=== PATIENT | male | born 1965 | race Two or more races ===

== ENCOUNTER 2020-12-16 16:46 | Inpatient (IN) | payer OTHER ==
[~2020-12-16] VITALS: Ht 182.9 cm; Wt 171.5 kg
[2020-12-16] MEDS ORDERED: DEXAMETHASONE SOD PHOSPHATE 10 MG/ML VIAL IV ONE (17:00)
[2020-12-16] MEDS ORDERED: VANCOMYCIN 1 GM in IV D5W 250 ML IV ONE (17:00)
[2020-12-16] MEDS ORDERED: CEFEPIME 1 GM in IV D5W 50 ML IV ONE (17:00)
--- NOTE | 2020-12-16 17:11 | NUR ---
CALLED NURSING SUP FOR PICC LINE. ETA 1 HOUR.
[2020-12-16] MEDS ORDERED: ATOR40TA PO (17:18)
[2020-12-16] MEDS ORDERED: PIOG30TA10 PO (17:18)
[2020-12-16] MEDS ORDERED: NIFE90TA61 PO (17:18)
[2020-12-16] MEDS ORDERED: LOSA100T31 PO (17:18)
[2020-12-16] MEDS ORDERED: CHLO25TA2 PO (17:18)
[2020-12-16] MEDS ORDERED: METO100T14 PO (17:18)
[2020-12-16] MEDS ORDERED: METF-442 PO (17:18)
[2020-12-16] MEDS ORDERED: GLIM4TAB37 PO (17:18)
[2020-12-16] MEDS ORDERED: DEXAMETHASONE SOD PHOSPHATE 10 MG/ML VIAL ONE (17:29)
--- NOTE | 2020-12-16 17:34 | NUR ---
PT IS PLACED ON 02 VIA HI FLOW WITH SETTING OF 60LPM 100% FIO2. PT NOTED WITH DISTRESS ALLEVIATION. NOTED SATTING @ 85% DESPITE HI-FLOW O2. MD IS AWARE AND RT IS AWARE WELL.
[2020-12-16 17:35] LABS: BASOPHILS # (AUTO) 0.1 K/uL (0.0-0.2); BASOPHILS % (AUTO) 0.5 % (0.0-2.0); HEMATOCRIT 34 % (39-51); LYMPHOCYTES # (AUTO) 1.1 K/uL (0.8-4.8); LYMPHOCYTES % (AUTO) 9.1 % (20.0-44.0); MEAN CORPUSCULAR HGB CONC 35 g/dl (31.0-36.0); MEAN CORPUSCULAR VOLUME 83 fL (80-96); MONOCYTES # (AUTO) 0.5 K/uL (0.1-1.30); MONOCYTES % (AUTO) 3.6 % (2.0-12.0); NEUTROPHILS # (AUTO) 10.9 K/uL (1.8-8.9); NEUTROPHILS % (AUTO) 86.8 % (43.0-81.0); PLATELET COUNT (AUTO) 265 K/uL (150-450); RED BLOOD CELL COUNT(AUTO) 4.15 MIL/uL (4.5-6.0); WHITE BLOOD COUNT (AUTO) 12.6 K/uL (4.3-11.0)
[2020-12-16 17:46] LABS: CALCIUM, SERUM 8.5 mg/dL (8.5-10.1); CARBON DIOXIDE 22 mmol/L (21-32); CHLORIDE 97 mmol/L (98-107); CREATININE 1.6 mg/dL (0.6-1.3); GLUCOSE 212 mg/dL (74-106); SODIUM SERUM 137 mmol/L (136-145); UREA NITROGEN, BLOOD 19 mg/dL (7-18)
[2020-12-16 17:48] LABS: POTASSIUM 2.6 mmol/L (3.5-5.1)
[2020-12-16 17:48] LABS: D-DIMER 1.28 mg/L(FEU (0.17-0.50)
[2020-12-16 17:52] LABS: ALANINE AMINOTRANSFERASE 30 U/L (12-78); ALBUMIN 2.9 g/dL (3.4-5.0); ALKALINE PHOSPHATASE 60 U/L (46-116); ASPARTATE AMINOTRANSFERASE 52 U/L (15-37); BILIRUBIN,DIRECT 0.2 mg/dL (0.0-0.2); BILIRUBIN,TOTAL 0.5 mg/dL (0.2-1.0); TOTAL PROTEIN, SERUM 7.4 g/dL (6.4-8.2)
--- NOTE | 2020-12-16 18:09 | NUR ---
CONSENT OBTAINED FOR PICC LINE INSERTION FORM THE PT. PICC LINE NURSE AT BEDSIDE
[2020-12-16 18:35] LABS: C-REACTIVE PROTEIN 21.9 mg/dL (0.0-0.9)
[2020-12-16] MEDS ORDERED: POTASSIUM CL. PREMIX PERIPHER. 200 ML ONE (18:44)
[2020-12-16] MEDS ORDERED: Magnesium 1GM/D5W 100ML PREMIX 100 ML IV ONE (18:44)
--- NOTE | 2020-12-16 18:55 | NUR ---
PT'S PICC LINE IS OK TO BE USED PER PICC LINE NNURSE. XRAY WAS DONE AT BEDSIDE.
[2020-12-16] MEDS ORDERED: IV NS 0.9% 1,000 ML IV ONE ×2 (19:00→20:00)
[2020-12-16] MEDS: POTASSIUM CL. PREMIX PERIPHER. 50 ML IV SCH ×4 (19:00→21:41)
[2020-12-16] MEDS ORDERED: Magnesium 1GM/D5W 100ML PREMIX PIGGYBACK IV ONE (19:00)
[2020-12-16 19:46] LABS: ABG BASE EXCESS 3.1 mmol/L; ABG OXYGEN SATURATION 91.6 % (92.0-98.5); ABG PCO2 29.5 mmHg (35.0-45.0); ABG PH 7.545 (7.350-7.450); ABG PO2 58.6 mmHg (75.0-100.0); AaDO2 624.9 mmHg; COHb 0.3 % (0.5-1.5); MetHb 0.5 % (0.0-1.5); O2Hb 90.9 % (94.0-97.0); SITE, ABG Left Brachial
[2020-12-16] MEDS ORDERED: Z GUARD REMEDY 2 OZ OINT TP PRN (20:00)
[2020-12-16] MEDS ORDERED: ONDANSETRON HCL/PF 4 MG/2 ML VIAL IVP PRN (20:00)
[2020-12-16] MEDS ORDERED: DEXTROSE 50%-WATER 50 ML DISP.SYRIN IV PRN (20:00)
[2020-12-16] MEDS ORDERED: MAGNESIUM HYDROXIDE 30 ML UDC PO PRN (20:00)
[2020-12-16] MEDS ORDERED: MAG HYDROX/AL HYDROX/SIMETH 30 ML UDC PO PRN (20:00)
--- NOTE | 2020-12-16 20:13 | NUR ---
REPORT GIVEN TO MELINDA MENDEZ FOR SHAHNAZ
--- NOTE | 2020-12-16 20:25 | NUR ---
ADMISSION OIL PROCESS STILLMANSPOOL SANDER 54 YEARS OLD MALE TO ICU UNIT AT ROOM 262 WITH DIAGNOSIS: ACUTE HYPOXIC RESPIRATORY FAILURE,ALERT ORIENTED X4 VERBALLY RESPONSIVE ON HIGH FLOW OXYGEN 60L FIO2:100% AND 15L NON REBREATHER MASK O2:90%,IV SITE IS ON RIGHT UPPER ARM PICC LINE AND LEFT HAND INTACT PATENT,CONTINET TO BOWEL/BLADDER SAFETY MEASURE IMPLEMENT CALL LIGHT WITHIN REACH,HEAD OF THE BED ELEVATED,BED IN LOW POSITION AND LOCKED CONTINUE TO MONITOR
--- NOTE | 2020-12-16 20:32 | NUR ---
PT TRANSPORTED TO UNIT ON [facility] WITH EMT, RT AND RN AT BEDSIDE W/ ACLS PROTOCOL. NAD NOTED DURING TRANSPORT.
[2020-12-16] MEDS: BLOOD SUGAR DIAGNOSTIC 1 EACH STRIP VI SCH (21:55)
[2020-12-16] MEDS: *INSULIN REGULAR(HUMULIN R)HUM 100 UNIT/ML VIAL SQ PRN (22:11)
[2020-12-16 23:00] VITALS: BP 144/80
[2020-12-17] VITALS (24 sets, daily range): BP systolic 115–147; BP diastolic 48–80
[2020-12-17 04:38] LABS: BASOPHILS % (AUTO) 0.2 % (0.0-2.0); HEMATOCRIT 32 % (39-51); HEMOGLOBIN 11.3 g/dL (13.5-17.5); LYMPHOCYTES % (AUTO) 11.9 % (20.0-44.0); MEAN CORPUSCULAR HGB CONC 35 g/dl (31.0-36.0); MEAN CORPUSCULAR VOLUME 83 fL (80-96); MONOCYTES # (AUTO) 0.5 K/uL (0.1-1.30); MONOCYTES % (AUTO) 5.3 % (2.0-12.0); NEUTROPHILS # (AUTO) 7.1 K/uL (1.8-8.9); NEUTROPHILS % (AUTO) 82.6 % (43.0-81.0); PLATELET COUNT (AUTO) 263 K/uL (150-450); RED BLOOD CELL COUNT(AUTO) 3.87 MIL/uL (4.5-6.0); WHITE BLOOD COUNT (AUTO) 8.6 K/uL (4.3-11.0)
[2020-12-17 04:50] LABS: CALCIUM, SERUM 8.3 mg/dL (8.5-10.1); CREATININE 1.1 mg/dL (0.6-1.3); MAGNESIUM 2.5 mg/dL (1.8-2.4); PHOSPHORUS 3.6 mg/dL (2.5-4.9); POTASSIUM 3.2 mmol/L (3.5-5.1)
--- NOTE | 2020-12-17 06:52 | NUR ---
CORPORATE LEGAL MANAGER NOTE PATIENT REMAINS ON ALERT ORIENTED X4 VERBALLY RESPONSIVE ON HIGH FLOW OXYGEN 60L FIO2:100% AND 15 ABDULKADIR NON REBREAHTER MASKE O2l:85-92% IV SITE IS ON RIGHT UPPER ARM PICC LINE AND LEFT HAND,ON IV HYDRINTON IN0.9 75CC/HR ALL DUE MEDS GIVEN MD ORDERED.OLDRED ALL NEEDS ME5T ,ENDORSE NEXT COMING SHIFT FOR [facility].
--- NOTE | 2020-12-17 07:15 | NUR ---
RN NOTE PATIENT OBSERVED IN BED AWAKE ALERT AND ORIENTED X4, ON HF @40 LPM 100% FIO2 AND NON-REBREATHER MASK 15LPM O2 SAT OF 92% TOLERATING WELL, NOT IN RESPIRATORY DISTRESS AT THIS TIME,WITH RIGHT UPPER ARM PICC LINE PATENT INFUSING WELL IV HYDRATION NS RUNNING @75CC/HR, ON TELE MONITOR SR HR OF 68, URINAL AT BEDSITE BELONGING WITHIN EASY REACH, SAFETY MEASURES OBSERVED, BED WHEELS LOCK, CALL LIGHT WITHIN REACH WILL CONTINUE TO MONITOR. Addendum: 12/17/20 at 0754 by JEFFREY VALERA RN RN NOTE PATIENT OBSERVED IN BED AWAKE ALERT AND ORIENTED X4, ON HF @60 LPM 100% FIO2 AND NON-REBREATHER MASK 15LPM O2 SAT OF 92% TOLERATING WELL, NOT IN RESPIRATORY DISTRESS AT THIS TIME,WITH RIGHT UPPER ARM PICC LINE PATENT INFUSING WELL IV HYDRATION NS RUNNING @75CC/HR, ON TELE MONITOR SR HR OF 68, URINAL AT BEDSITE BELONGING WITHIN EASY REACH, SAFETY MEASURES OBSERVED, BED WHEELS LOCK, CALL LIGHT WITHIN REACH WILL CONTINUE TO MONITOR.
[2020-12-17] MEDS: BLOOD SUGAR DIAGNOSTIC 1 EACH STRIP VI SCH ×4 (08:01→21:28)
[2020-12-17] MEDS: METOPROLOL TARTRATE 50 MG TABLET PO SCH ×2 (08:27→16:59)
[2020-12-17] MEDS: ATORVASTATIN 40 MG TABLET PO SCH (08:27)
[2020-12-17] MEDS: DEXAMETHASONE SOD PHOSPHATE 10 MG/ML VIAL IV SCH (08:28)
[2020-12-17] MEDS: NIFEdipine XL (30MG) 30 MG TAB PO SCH (08:30)
[2020-12-17] MEDS ORDERED: ENOXAPARIN SODIUM 40 MG/0.4 ML DISP.SYRIN SQ SCH ×2 (08:30→09:30)
[2020-12-17] MEDS: *INSULIN REGULAR(HUMULIN R)HUM 100 UNIT/ML VIAL SQ PRN ×2 (08:37→21:27)
[2020-12-17] MEDS ORDERED: PIOGLITAZONE HCL 15 MG TABLET PO SCH (09:00)
[2020-12-17] MEDS ORDERED: GLIMEPIRIDE 4 MG TABLET PO SCH (09:00)
--- NOTE | 2020-12-17 09:28 | NUR ---
RN NOTE DUPLICATE LOVENOX ORDER NOT ADMINISTERED.
[2020-12-17] MEDS ORDERED: POTASSIUM CHLORIDE 20 MEQ TAB.PRT.SR PO SCH (10:30)
[2020-12-17] MEDS ORDERED: REMDESIVIR (CHARGED) 200 MG, *LOADING DOSE 1 EA in IV NS 0.9% 210 ML IV ONE ×2 (11:00)
--- NOTE | 2020-12-17 11:00 | NUR ---
RN NOTE PATIENT SEEN BY DR. HUMBERTO SANCHEZ, UPDATED REGARDING PATIENT CURRENT CONDITON, WILL CONTINUE PLAN OF CARE ORDERED.
[2020-12-17] MEDS: INSULIN REGULAR, HUMAN 100 UNIT/ML 3 ML VIAL SQ PRN ×2 (12:08→16:57)
[2020-12-17] MEDS ORDERED: ACETAMINOPHEN 325 MG TABLET PO ONE (15:00)
[2020-12-17] MEDS ORDERED: diphenhydrAMINE HCL 50 MG/ML VIAL IV ONE (15:00)
--- NOTE | 2020-12-17 15:49 | NUR ---
RN NOTE PATIENT STARTED ACTEMRA ORDERED, TYLENOL AND BENADRYL GIVEN PRE ADMINISTRATION OF ACTEMRA ORDERED, WILL CONTINUE TO MONITOR PATIENT FOR ASE.
--- NOTE | 2020-12-17 16:06 | NUR ---
RN NOTE PATIENT ON ACTEMRA INFUSION, TOLERATING WELL, NO ASE NOTED AT THIS TIME.
[2020-12-17] MEDS ORDERED: TOCILIZUMAB 800 MG in IV NS 0.9% 80 ML IV ONE (16:30)
--- NOTE | 2020-12-17 17:00 | NUR ---
RN NOTE ACTEMRA ADMINISTRATION DONE, NO ASE NOTED, PATIENT TOLERATED WELL.
--- NOTE | 2020-12-17 18:53 | NUR ---
RN NOTE PATIENT OBSERVED IN BED AWAKE ALERT AND ORIENTED X4, ON HF @60 LPM 100% FIO2 AND NON-REBREATHER MASK 15LPM O2 SAT OF 92% TOLERATING WELL, NOT IN RESPIRATORY DISTRESS AT THIS TIME,WITH RIGHT UPPER ARM PICC LINE PATENT INFUSING WELL SP ACTEMRA NO ASE NOTED, LOADING DOSE OF REMDESIVER ADMINISTERED ORDERED, ECHO CARDIOGRAM DONE EF OF 55%-60% , ON TELE MONITOR SR HR OF 68, URINAL AT BEDSITE BELONGING WITHIN EASY REACH, CONTINUE DVT PPX NO BLEEDING NOTED AT THIS TIME. SAFETY MEASURES OBSERVED, BED WHEELS LOCK, CALL LIGHT WITHIN REACH WILL CONTINUE TO MONITOR. WILL ENDORSE TO NOC SHIFT.
[2020-12-17] MEDS: ENOXAPARIN SODIUM 40 MG/0.4 ML DISP.SYRIN SQ SCH (20:59)
[2020-12-18] VITALS (24 sets, daily range): BP systolic 120–155; BP diastolic 50–79
[2020-12-18 04:52] LABS: ALBUMIN 2.6 g/dL (3.4-5.0); BILIRUBIN,DIRECT 0.1 mg/dL (0.0-0.2); BILIRUBIN,TOTAL 0.4 mg/dL (0.2-1.0); TOTAL PROTEIN, SERUM 7.3 g/dL (6.4-8.2)
[2020-12-18] MEDS: ACETAMINOPHEN 325 MG TABLET PO PRN (05:20)
--- NOTE | 2020-12-18 05:38 | NUR ---
END OF SHIFT PT REMAINS ON DOUBLE OXYGEN SET UP. HFNC + NRB. O2 SAT 88%-92%.
--- NOTE | 2020-12-18 06:30 | NUR ---
SCAFFOLDING HELPER: PT REMAINED A/O X3. ON HFNC 60L WT 100% FI02 AND 15L NON-REBREATHER MASK. PREFFERRED TO SIT UP ON CHAIR FOR BETTER 02 SATURATION. REFUSED TO PRONE AND UNABLE TO TOLERATE SIDE LYING POSITION. HOB REMAINED ON HIGH-ROSE'S. SR ON ORDER WORKER. AFEBRILE. REQUESTED TYLENOL FOR GEN. BODY PAIN (3/10) WT GOOD EFFECT AFTER AN HOUR (0/10). BP WITHIN BASELINE. ABLE TO URINATE ON URINAL. MOTIVATED TO SELF-CARE WT STAND-BY ASSISTANCE. BED IN LOWEST POSITION AND LOCKED, SIDE RAILS UPX2. OFFLOADED EXTREMITIES AT ALL TIMES. CALL LIGHT KEPT WITHIN REACH.
--- NOTE | 2020-12-18 07:20 | NUR ---
RN NOTE PATIENT OBSERVED IN BED AWAKE ALERT AND ORIENTED X4, ON HF @60 LPM 100% FIO2 AND NON-REBREATHER MASK 15LPM O2 SAT OF 92% TOLERATING WELL, NOT IN RESPIRATORY DISTRESS AT THIS TIME,WITH RIGHT UPPER ARM PICC LINE PATENT INFUSING WELL, ON TELE MONITOR SR HR OF 68, URINAL AT BEDSITE BELONGING WITHIN EASY REACH, CONTINUE DVT PPX NO BLEEDING NOTED AT THIS TIME. SAFETY MEASURES OBSERVED, BED WHEELS LOCK, CALL LIGHT WITHIN REACH WILL CONTINUE TO MONITOR.
[2020-12-18] MEDS ORDERED: POTASSIUM CHLORIDE 20 MEQ TAB.PRT.SR PO ONE (08:00)
[2020-12-18] MEDS: BLOOD SUGAR DIAGNOSTIC 1 EACH STRIP VI SCH ×4 (08:16→22:04)
[2020-12-18] MEDS: ENOXAPARIN SODIUM 40 MG/0.4 ML DISP.SYRIN SQ SCH ×2 (08:39→20:22)
[2020-12-18] MEDS: *INSULIN REGULAR(HUMULIN R)HUM 100 UNIT/ML VIAL SQ PRN ×2 (08:40→22:04)
[2020-12-18] MEDS: ATORVASTATIN 40 MG TABLET PO SCH (08:42)
[2020-12-18] MEDS: METOPROLOL TARTRATE 50 MG TABLET PO SCH ×2 (08:42→16:32)
[2020-12-18] MEDS: NIFEdipine XL (30MG) 30 MG TAB PO SCH (08:43)
[2020-12-18] MEDS: DEXAMETHASONE SOD PHOSPHATE 10 MG/ML VIAL IV SCH (08:43)
[2020-12-18 08:48] LABS: ABG BASE EXCESS 1.4 mmol/L; ABG OXYGEN SATURATION 87.6 % (92.0-98.5); ABG PCO2 30.2 mmHg (35.0-45.0); ABG PH 7.512 (7.350-7.450); ABG PO2 50.9 mmHg (75.0-100.0); AaDO2 631.9 mmHg; O2Hb 87.6 % (94.0-97.0); SITE, ABG Right Radial; VENT MODE, BG HFNC 100%+NRB
[2020-12-18 10:39] LABS: BASOPHILS # (AUTO) 0.1 K/uL (0.0-0.2); BASOPHILS % (AUTO) 0.6 % (0.0-2.0); HEMATOCRIT 34 % (39-51); HEMOGLOBIN 11.7 g/dL (13.5-17.5); LYMPHOCYTES # (AUTO) 1.2 K/uL (0.8-4.8); LYMPHOCYTES % (AUTO) 11.9 % (20.0-44.0); MEAN CORPUSCULAR HGB CONC 34 g/dl (31.0-36.0); MEAN CORPUSCULAR VOLUME 85 fL (80-96); MONOCYTES # (AUTO) 0.4 K/uL (0.1-1.30); MONOCYTES % (AUTO) 4.1 % (2.0-12.0); NEUTROPHILS # (AUTO) 8.6 K/uL (1.8-8.9); NEUTROPHILS % (AUTO) 83.4 % (43.0-81.0); PLATELET COUNT (AUTO) 299 K/uL (150-450); RED BLOOD CELL COUNT(AUTO) 4.03 MIL/uL (4.5-6.0); WHITE BLOOD COUNT (AUTO) 10.3 K/uL (4.3-11.0)
[2020-12-18 10:52] LABS: CALCIUM, SERUM 8.7 mg/dL (8.5-10.1); CREATININE 1.2 mg/dL (0.6-1.3); POTASSIUM 3.6 mmol/L (3.5-5.1)
[2020-12-18] MEDS: REMDESIVIR (CHARGED) 100 MG in IV NS 0.9% 100 ML IV SCH (11:46)
[2020-12-18] MEDS: INSULIN REGULAR, HUMAN 100 UNIT/ML 3 ML VIAL SQ PRN ×2 (12:14→16:48)
--- NOTE | 2020-12-18 18:30 | NUR ---
RN NOTE [facility] RESULT CALLED BY [place] [employer] AUDITOR EVA LOVE PCR POSITIVE FOR COVID 19, MD AWARE PATIENT ALREADY ON COVID ISOLATION PRECAUTION AND RECEIVING REMDESIVER.
--- NOTE | 2020-12-18 18:51 | NUR ---
RN NOTE PATIENT SITTIN ON CHAIR WITH HF @ 60LPM WITH 100%FIO2 AND 15LPM NON-REBREATHER TOLERATING WELL O2SAT OF 94%, ON TELE MONITOR SR OF 62 AT THIS TIME, NO PAIN COMPLAINS, REMDESIVER GIVEN ORDERED, NO ASE NOTED, PATIENT ON DVT PPX NO BLEEDING NOTED, CONTINENT ON BOWEL AND BLADDER, AMBULATES WITH MINIMAL ASSIST, NEEDS MET AND ANTICIPATED, CALL LIGHT WITHIN REACH, DUE MEDICATION GIVEN ORDERED, SAFETY MEASURES OBSERVED WILL ENDORSE TO NOC SHIFT.
--- NOTE | 2020-12-18 20:07 | NUR ---
Patient remains on double oxygen set up HFNC + NRB. Patient is awake and sitting on the chair. O2 sat 96%. Continue to monitor. Addendum: 12/18/20 at 2009 by SHANE BRAR RT Amended: Links added.
--- NOTE | 2020-12-18 20:30 | NUR ---
COMMERCIAL REAL ESTATE PARALEGAL: CALLED AND NOTIFIED DR. JOHNNY GREENBERG RF=[phone], CHECKED BEFORE SCHEDULED TIME PT IS ON ISOLATION FOR COVID AND REQUESTED THE NURSE TO COME INSIDE THE ROOM FOR ASSISTANCE. PT SAID THAT HE HAS BEEN DRINKING PEDIALYTE JUICE WT A LOT OF SUGAR CONTENT. MD MADE AWARE THAT PT IS ON DECADRON IV AND NOT ON LANTUS. MD INFORMED THAT BLOOD SUGAR WILL BE RECHECKED IN AN HOUR AND ASKED IF RESULT IS STIL ABOVE 400, DOES HE WANT TO ORDER MORE INSULIN. MD SAID TO JUST COVER THE HS SLIDING SCALE WITH NO FURTHER ORDERS. PT MADE AWARE. NO SHAHNAZ A THIS TIME. REMAINED A/O X4. CONTINUE ON HFNC 60L 100% FIO2 WITH 15L NON-REBREATHER MASK. SITTING ON THE CHAIR. CALL LIGHT WITHINI REACH.
--- NOTE | 2020-12-18 22:05 | NUR ---
MICROBIOLOGY TECHNICIAN: BS RECHECKED WT RESULT OF 402. COVERED WT 10U REGULAR INSULIN PER SLIDING SCALE. PT. SAID HE WON'T DRINK THE PEDIALYTE ANYMORE.
[2020-12-18] MEDS: ZOLPIDEM TARTRATE 5 MG TABLET PO PRN (23:17)
[2020-12-19] VITALS (25 sets, daily range): BP systolic 136–164; BP diastolic 64–99
[2020-12-19 04:36] LABS: CALCIUM, SERUM 8.9 mg/dL (8.5-10.1); POTASSIUM 3.8 mmol/L (3.5-5.1)
[2020-12-19 04:43] LABS: ALBUMIN 2.6 g/dL (3.4-5.0); BILIRUBIN,DIRECT 0.1 mg/dL (0.0-0.2); BILIRUBIN,TOTAL 0.3 mg/dL (0.2-1.0); TOTAL PROTEIN, SERUM 6.9 g/dL (6.4-8.2)
--- NOTE | 2020-12-19 06:20 | NUR ---
REGIONAL DRIVER: SR-SB ON OTR VAN CDL TRUCK DRIVER WT LOWEST HR IN HIGH 40s WHEN ASLEEP. TOLERATING HFNC AT 50L WT 100% FI02 WT 15L NON-REBREATHER MASK. SAFETY PRECAUTION NOTED AT ALL TIMES.
[2020-12-19] MEDS: BLOOD SUGAR DIAGNOSTIC 1 EACH STRIP VI SCH ×4 (08:20→21:59)
[2020-12-19] MEDS: NIFEdipine XL (30MG) 30 MG TAB PO SCH (08:21)
[2020-12-19] MEDS: ENOXAPARIN SODIUM 40 MG/0.4 ML DISP.SYRIN SQ SCH ×2 (08:21→21:27)
[2020-12-19] MEDS: DEXAMETHASONE SOD PHOSPHATE 10 MG/ML VIAL IV SCH (08:21)
[2020-12-19] MEDS: ATORVASTATIN 40 MG TABLET PO SCH (08:21)
[2020-12-19 08:22] LABS: ABG BASE EXCESS -3.1 mmol/L; ABG OXYGEN SATURATION 89.1 % (92.0-98.5); ABG PCO2 58.1 mmHg (35.0-45.0); ABG PH 7.243 (7.350-7.450); ABG PO2 61.2 mmHg (75.0-100.0); AaDO2 593.7 mmHg; COHb 0.3 % (0.5-1.5); MetHb 0.2 % (0.0-1.5); O2Hb 88.7 % (94.0-97.0); SITE, ABG Right Radial; VENT MODE, BG 18/5 RR8
[2020-12-19] MEDS: METOPROLOL TARTRATE 50 MG TABLET PO SCH ×2 (08:22→17:00)
[2020-12-19] MEDS: INSULIN REGULAR, HUMAN 100 UNIT/ML 3 ML VIAL SQ PRN ×3 (08:23→17:59)
[2020-12-19] MEDS: REMDESIVIR (CHARGED) 100 MG in IV NS 0.9% 100 ML IV SCH (12:07)
--- NOTE | 2020-12-19 14:01 | NUR ---
RN NOTE 0715: Received patient resting in bed. A/Ox4. On HFNC 50L 100% FIO2 and 15LPM O2 via NRB mask. Sat 97% at this time. On 45 degrees high fowlers. No c/o hard time breathing at this time. On isolation precaution for Covid, maintained and observed. 0800: Refused breakfast, will encourage again later. 0830: S/E by Dr. Mcbride, no new order at this time. 1020: RT at bedside, titrated off NRB mask, now just on 50L 100% FIO2, sat 96%. 1130: Assisted patient to sit on the chair, tolerated. No c/o hard time breathing still. 1220: Tolerated diet, no any significant changes noted. patient preferred sitting on the chair for now.
--- NOTE | 2020-12-19 18:21 | NUR ---
RN NOTE No any significant changes. Sitting on a chair, on HFNC 50L 100% FIO2 sat 99%. No c/o hard of breathing. Diet tolerated. RI given per sliding scale.
[2020-12-19] MEDS: *INSULIN REGULAR(HUMULIN R)HUM 100 UNIT/ML VIAL SQ PRN (22:43)
[2020-12-20] VITALS (41 sets, daily range): BP systolic 119–191; BP diastolic 31–104
--- NOTE | 2020-12-20 02:57 | NUR ---
SLAB LIFTING SUPERVISOR CONTACT INFO IN CASE OF EMERGENCY PLEASE CALL MOTHER TERELL OR BROTHER GAUTAM GUILLEN [phone]; PER PT GAUTAM IS DECISION MAKER. SISTER YAZMIN MAY HAVE INFORMATION. FRIEND RONY ESTEBAN [phone] MAY ALSO BE GIVEN INFORMATION.
[2020-12-20] MEDS: hydrALAZINE HCL IV 20 MG VIAL IV PRN ×3 (04:16→21:40)
[2020-12-20 05:13] LABS: BASOPHILS % (AUTO) 0.3 % (0.0-2.0); EOSINOPHILS % (AUTO) 0.7 % (0.0-6.0); HEMATOCRIT 35 % (39-51); HEMOGLOBIN 12.2 g/dL (13.5-17.5); LYMPHOCYTES # (AUTO) 2.4 K/uL (0.8-4.8); LYMPHOCYTES % (AUTO) 26.7 % (20.0-44.0); MEAN CORPUSCULAR HGB CONC 35 g/dl (31.0-36.0); MEAN CORPUSCULAR VOLUME 84 fL (80-96); MONOCYTES # (AUTO) 0.5 K/uL (0.1-1.30); MONOCYTES % (AUTO) 5.8 % (2.0-12.0); NEUTROPHILS # (AUTO) 5.9 K/uL (1.8-8.9); NEUTROPHILS % (AUTO) 66.5 % (43.0-81.0); PLATELET COUNT (AUTO) 378 K/uL (150-450); RED BLOOD CELL COUNT(AUTO) 4.19 MIL/uL (4.5-6.0); WHITE BLOOD COUNT (AUTO) 8.9 K/uL (4.3-11.0)
[2020-12-20] MEDS: ACETAMINOPHEN 325 MG TABLET PO PRN ×2 (05:21→12:24)
[2020-12-20 05:24] LABS: CALCIUM, SERUM 8.8 mg/dL (8.5-10.1); CREATININE 0.9 mg/dL (0.6-1.3); POTASSIUM 3.6 mmol/L (3.5-5.1)
[2020-12-20 05:30] LABS: ALBUMIN 2.6 g/dL (3.4-5.0); BILIRUBIN,DIRECT 0.1 mg/dL (0.0-0.2); BILIRUBIN,TOTAL 0.3 mg/dL (0.2-1.0); TOTAL PROTEIN, SERUM 6.8 g/dL (6.4-8.2)
--- NOTE | 2020-12-20 05:33 | NUR ---
MEDICAL SERVICES MANAGER PT GIVEN TYLENOL REQUESTED FOR MILD ACHING LOW BACK PAIN 07/02.
--- NOTE | 2020-12-20 08:00 | NUR ---
RN Note: PT RECEIVED AAOX4. ON HFNC @30L/100%, SETTINGS TOLERATING WELL. NO BREATHING DISTRESS NOTED AT REST. HOB ELEVATED. CONTINUE ON CONTACT/DROPLET PRECAUTIONS D/T COVID +VE. ENCOURAGE PT TO USE CALL LIGHT FOR ASSISTANCE. CALL LIGHT WITHIN REACH. CONTINUE TO MONITOR.
[2020-12-20] MEDS: NIFEdipine XL (30MG) 30 MG TAB PO SCH (08:27)
[2020-12-20] MEDS: ATORVASTATIN 40 MG TABLET PO SCH (08:27)
[2020-12-20] MEDS: DEXAMETHASONE SOD PHOSPHATE 10 MG/ML VIAL IV SCH (08:27)
[2020-12-20] MEDS: ENOXAPARIN SODIUM 40 MG/0.4 ML DISP.SYRIN SQ SCH ×2 (08:29→21:20)
[2020-12-20] MEDS: INSULIN REGULAR, HUMAN 100 UNIT/ML 3 ML VIAL SQ PRN ×3 (08:30→17:30)
[2020-12-20] MEDS: METOPROLOL TARTRATE 50 MG TABLET PO SCH ×2 (08:30→17:12)
[2020-12-20] MEDS: BLOOD SUGAR DIAGNOSTIC 1 EACH STRIP VI SCH ×4 (08:30→21:20)
[2020-12-20 09:22] LABS: ABG BASE EXCESS 0.4 mmol/L; ABG OXYGEN SATURATION 89.5 % (92.0-98.5); ABG PCO2 32.8 mmHg (35.0-45.0); ABG PH 7.471 (7.350-7.450); ABG PO2 55.1 mmHg (75.0-100.0); AaDO2 625.1 mmHg; COHb 0.1 % (0.5-1.5); MetHb 0.2 % (0.0-1.5); O2Hb 89.2 % (94.0-97.0); SITE, ABG Right Radial
[2020-12-20] MEDS ORDERED: LISINOPRIL (10MG) 10 MG TABLET PO SCH (09:30)
[2020-12-20] MEDS: REMDESIVIR (CHARGED) 100 MG in IV NS 0.9% 100 ML IV SCH (11:11)
--- NOTE | 2020-12-20 18:57 | NUR ---
RN Note: Pt remains stable during shift. Since lunch, sitting on chair, tolerating well. No significant changes noted during shift. Will endorse to PM shift for continuity of care.
--- NOTE | 2020-12-20 19:25 | NUR ---
GREENKEEPER OPENING NOTE REC'D REPORT FROM MELINDA FLORES. PT SITTING ON CHAIR AT THIS TIME. PT IS ON HIGH FLOW NASAL CANNULA, DELIVERING O2 35L AT 40% PT AT THIS TIME NO SOB NO RESP DISTRESS NOTED. PT SATURATION IS 93%. ON ROSE GRADING SUPERVISOR, PT PRESENTS WITH SB WITH HR OF 59. BASELINE TO PT. PT IS AMBULATORY WITH STANDBY ASSIST. ENCOURAGED PT TO USE CALL LIGHT WHEN IN NEED OF ASSISTANCE, PT VERBALIZED UNDERSTANDING. LEFT HAND IV AND VON NOTED. FLUSHED. PT DENIES PAIN, ALL NEEDS ATTENDED AT THIS TIME. ISOLATION PRECAUTIONS IN PLACE FOR COVID POSITIVE, SAFETY MEASURES IN PLACE. HOB ELEVATED. SIDE RAILS UP X2 BED LOCKED IN LOWEST POSITION WITH BED ALARM ON. WILL CONT TO MONITOR FOR CHANGE OF CONDITION THROUGHOUT SHIFT.
--- NOTE | 2020-12-20 20:52 | NUR ---
RN NOTE PT SATURATION NOTED TO BE IN THE 80s AFTER USING RESTROOM AND TRANSFERRING FROM CHAIR TO BED, PT PLACED ON 35L @ 100% WITH RT AT BEDSIDE.
[2020-12-20] MEDS: *INSULIN REGULAR(HUMULIN R)HUM 100 UNIT/ML VIAL SQ PRN (21:54)
[2020-12-20] MEDS: ZOLPIDEM TARTRATE 5 MG TABLET PO PRN (21:57)
[2020-12-21] VITALS (46 sets, daily range): BP systolic 147–190; BP diastolic 63–115
[2020-12-21] MEDS: hydrALAZINE HCL IV 20 MG VIAL IV PRN (04:03)
[2020-12-21 05:44] LABS: BASOPHILS % (AUTO) 0.2 % (0.0-2.0); EOSINOPHILS % (AUTO) 1.7 % (0.0-6.0); HEMATOCRIT 36 % (39-51); HEMOGLOBIN 12.3 g/dL (13.5-17.5); LYMPHOCYTES # (AUTO) 2.3 K/uL (0.8-4.8); LYMPHOCYTES % (AUTO) 23.5 % (20.0-44.0); MEAN CORPUSCULAR HGB CONC 34 g/dl (31.0-36.0); MEAN CORPUSCULAR VOLUME 84 fL (80-96); MONOCYTES # (AUTO) 0.6 K/uL (0.1-1.30); NEUTROPHILS # (AUTO) 6.6 K/uL (1.8-8.9); NEUTROPHILS % (AUTO) 68.6 % (43.0-81.0); PLATELET COUNT (AUTO) 341 K/uL (150-450); RED BLOOD CELL COUNT(AUTO) 4.27 MIL/uL (4.5-6.0); WHITE BLOOD COUNT (AUTO) 9.6 K/uL (4.3-11.0)
[2020-12-21 05:51] LABS: CALCIUM, SERUM 8.7 mg/dL (8.5-10.1); CREATININE 0.8 mg/dL (0.6-1.3); POTASSIUM 3.3 mmol/L (3.5-5.1)
[2020-12-21 05:57] LABS: ALBUMIN 2.8 g/dL (3.4-5.0); BILIRUBIN,DIRECT 0.1 mg/dL (0.0-0.2); BILIRUBIN,TOTAL 0.4 mg/dL (0.2-1.0); TOTAL PROTEIN, SERUM 6.6 g/dL (6.4-8.2)
--- NOTE | 2020-12-21 06:58 | NUR ---
RN CLOSING NOTE NO SIGNIFICANT CHANGES IN PT CONDITION. OVER NIGHT. PT AT THIS TIME REMAINS ON SAME HIGH FLOW SETTINGS. 35L @ 100%. SATURATING AT 90-92% ON THE MONITOR. NO SOB OR RESP DISTRESS NOTED. NSR HR 60S ON MONITOR. ORAL HYGIENE PRODUCTS PROVIDED. SAFETY MEASURES IN PLACE. HOB ELEVATED SIDE RAILS UP X2 BED LOCKED IN LOWEST POSITION. WILL ENDORSE TO DAY SHIFT NURSE FOR CONTINUATION OF CARE
--- NOTE | 2020-12-21 08:00 | NUR ---
RN NOTES RECEIVED PATIENT IN THE BED. RESTING ON HF NC ON 35/100%, PATIENT HAS NO ACUTE RESPIRATORY DISTRESS, BP-190/90, P-90, DUE MEDICATION ADMINISTERED, BS-183 MG/DL. PATENT WAS COMPLAINING OF HEADACHE. KEEP HOB ELEVATED. IV ACCESS ON RIGHT UA PICC LINE INTACT. CALL LIGHT WITHIN TO REACH. PATIENT OBESE, AND ISOLATION. WILL MONITORING.
[2020-12-21] MEDS: ATORVASTATIN 40 MG TABLET PO SCH (08:17)
[2020-12-21] MEDS: METOPROLOL TARTRATE 50 MG TABLET PO SCH ×2 (08:18→17:36)
[2020-12-21] MEDS: LISINOPRIL (10MG) 10 MG TABLET PO SCH (08:18)
[2020-12-21] MEDS: DEXAMETHASONE SOD PHOSPHATE 10 MG/ML VIAL IV SCH (08:19)
[2020-12-21] MEDS: BLOOD SUGAR DIAGNOSTIC 1 EACH STRIP VI SCH ×4 (08:19→22:00)
[2020-12-21] MEDS: ENOXAPARIN SODIUM 40 MG/0.4 ML DISP.SYRIN SQ SCH ×2 (08:21→22:40)
[2020-12-21] MEDS: NIFEdipine XL (30MG) 30 MG TAB PO SCH (08:25)
[2020-12-21] MEDS: hydrALAZINE HCL 25 MG TABLET PO SCH ×3 (08:27→22:39)
[2020-12-21] MEDS: INSULIN REGULAR, HUMAN 100 UNIT/ML 3 ML VIAL SQ PRN ×3 (09:18→17:49)
[2020-12-21] MEDS: ACETAMINOPHEN 325 MG TABLET PO PRN (09:18)
--- NOTE | 2020-12-21 09:18 | NUR ---
RN NOTES ADMINISTERED TYLENOL 650 MG PO PRN FOR HEADACHE, PER PATIENT REQUEST.
[2020-12-21] MEDS: REMDESIVIR (CHARGED) 100 MG in IV NS 0.9% 100 ML IV SCH (11:22)
[2020-12-21] MEDS ORDERED: POTASSIUM CHLORIDE 20 MEQ TAB.PRT.SR PO SCH (11:30)
--- NOTE | 2020-12-21 13:23 | NUR ---
rn notes bs-200 mg/dl coverage given, patient tolerated lunch 100%, due medication administered. medication were administered for headache effective, patient sitting in the chair. given incentive spirometer and educated how to use. patient verbalized understanding.
--- NOTE | 2020-12-21 16:12 | NUR ---
rn notes patient sitting in the chair. stable, refused pain, no acute respiratory distress, using incentive spirometer as instructed. assist patient daily hygiene.
--- NOTE | 2020-12-21 18:30 | NUR ---
RN NOTES PATIENT BACK TO THE BED, BS-287 MG/DL, COVERAGE GIVEN, TOLERATED DINNER 100%, REFUSED PAIN, NO ACUTE RESPIRATORY DISTRESS, DUE MEDICATION ADMINISTERED. CALL LIGHT WITHIN TO REACH. ENDORSED ONCOMING NURSE SHAHNAZ.
[2020-12-21] MEDS: *INSULIN REGULAR(HUMULIN R)HUM 100 UNIT/ML VIAL SQ PRN (22:43)
[2020-12-22] VITALS (70 sets, daily range): BP systolic 114–202; BP diastolic 48–117
--- NOTE | 2020-12-22 02:56 | NUR ---
patient awake alert no c/o of pain has high flow on 100%fi02 35 flow. lungs with rales through out chest on monitor sinus rhythm temp 98.6 voiding in bed side commode large amount blood sugar 317 given 8 units regular insulin s.q. temp 98.6 b/p 160/78 at 2100 took apresoline 25 mg po.at 0300 b/p 175/80 given aprsoline 10mg ivp no other changes in status. sat now is 92% on high flow. patient is obese and covid +.
[2020-12-22 04:24] LABS: BASOPHILS # (AUTO) 0.1 K/uL (0.0-0.2); BASOPHILS % (AUTO) 0.6 % (0.0-2.0); EOSINOPHILS % (AUTO) 3.1 % (0.0-6.0); HEMATOCRIT 36 % (39-51); HEMOGLOBIN 12.3 g/dL (13.5-17.5); LYMPHOCYTES % (AUTO) 21.5 % (20.0-44.0); MEAN CORPUSCULAR HGB CONC 34 g/dl (31.0-36.0); MEAN CORPUSCULAR VOLUME 85 fL (80-96); MONOCYTES # (AUTO) 0.5 K/uL (0.1-1.30); MONOCYTES % (AUTO) 5.3 % (2.0-12.0); NEUTROPHILS # (AUTO) 6.6 K/uL (1.8-8.9); NEUTROPHILS % (AUTO) 69.5 % (43.0-81.0); PLATELET COUNT (AUTO) 292 K/uL (150-450); RED BLOOD CELL COUNT(AUTO) 4.29 MIL/uL (4.5-6.0); WHITE BLOOD COUNT (AUTO) 9.4 K/uL (4.3-11.0)
[2020-12-22] MEDS: hydrALAZINE HCL 25 MG TABLET PO SCH ×3 (04:59→17:15)
[2020-12-22 05:09] LABS: ALBUMIN 2.8 g/dL (3.4-5.0); BILIRUBIN,DIRECT 0.1 mg/dL (0.0-0.2); BILIRUBIN,TOTAL 0.4 mg/dL (0.2-1.0); CALCIUM, SERUM 8.6 mg/dL (8.5-10.1); CREATININE 0.9 mg/dL (0.6-1.3); POTASSIUM 3.5 mmol/L (3.5-5.1); TOTAL PROTEIN, SERUM 6.5 g/dL (6.4-8.2)
[2020-12-22] MEDS: ACETAMINOPHEN 325 MG TABLET PO PRN ×2 (06:17→21:31)
[2020-12-22] MEDS: BLOOD SUGAR DIAGNOSTIC 1 EACH STRIP VI SCH ×4 (07:52→21:31)
[2020-12-22] MEDS: INSULIN REGULAR, HUMAN 100 UNIT/ML 3 ML VIAL SQ PRN ×3 (07:58→17:27)
--- NOTE | 2020-12-22 08:00 | NUR ---
RN NOTES PATIENT IN THE BED ON HFNC FIO2-40/100% AT THIS TIME. BP 190/99, P-80, DUE MEDICATION ADMINISTERED, BS-163 MG/DL, COVERAGE GIVEN. TOLERATED BREAKFAST 15%, ANXIOUS. KEEP HOB ELEVATED. NEEDS ATTENDED AND ANTICIPATED, CALL LIGHT WITHIN TO REACH. WILL FOLLOW UP.
[2020-12-22] MEDS: METOPROLOL TARTRATE 50 MG TABLET PO SCH ×2 (08:02→17:16)
[2020-12-22] MEDS: ATORVASTATIN 40 MG TABLET PO SCH (08:02)
[2020-12-22] MEDS: NIFEdipine XL (30MG) 30 MG TAB PO SCH (08:03)
[2020-12-22] MEDS: LISINOPRIL (10MG) 10 MG TABLET PO SCH (08:03)
[2020-12-22] MEDS: ENOXAPARIN SODIUM 40 MG/0.4 ML DISP.SYRIN SQ SCH ×2 (08:05→20:49)
[2020-12-22] MEDS: DEXAMETHASONE SOD PHOSPHATE 10 MG/ML VIAL IV SCH (08:07)
[2020-12-22] MEDS ORDERED: LISINOPRIL (10MG) 10 MG TABLET PO SCH (09:00)
[2020-12-22] MEDS ORDERED: LISINOPRIL (20MG) 20 MG TABLET PO ONE (09:00)
[2020-12-22 09:42] LABS: ABG BASE EXCESS 0.2 mmol/L; ABG OXYGEN SATURATION 89.7 % (92.0-98.5); ABG PCO2 30.8 mmHg (35.0-45.0); ABG PH 7.486 (7.350-7.450); AaDO2 625.2 mmHg; COHb 0.3 % (0.5-1.5); MetHb 0.1 % (0.0-1.5); O2Hb 89.3 % (94.0-97.0); SITE, ABG Right Radial
--- NOTE | 2020-12-22 11:42 | NUR ---
RN NOTES PATIENT VET ANXIOUS, , BS-251 MG/DL REFUSING LUNCH, BOTH HANDS ARE SWOLLEN, AND ASKIN TO SPEAK TO THE HOSPITALIST. NOTIFIED HOSPITALIST WAITING TO RESPOND FOR NEW ORDERS.
--- NOTE | 2020-12-22 11:45 | NUR ---
RN NOTES GET CALL BACK FROM HOSPITALIST Dr KAMARA, BECAUSE OF HIS OUT OF HOSPITAL AT THIS TIME HE WILL CALL AND TALK TO HIM LATER, AND GET TO ORDER ATIVAN 0,5 MG PO PRN Q6 HR FOR ANXIETY. ORDER TAKEN AND CARRIED OUT.
[2020-12-22] MEDS: LORAZEPAM 1 MG TABLET PO PRN (13:04)
--- NOTE | 2020-12-22 13:04 | NUR ---
RN NOTES SEEN PATIENT VIA HOSPITALIST NO NEW ORDER AT THIS TIME. BS-251 MG/DL COVERAGE GIVEN, AND ALSO ADMINISTERED ATIVAN 0.5 MG PO PRN FOR ANXIETY BP 182/98, P-91. PATOETY OUT OF BED SITTING IN THE CHAIR. USING URINAL. WILL MONITORING.
[2020-12-22] MEDS: hydrALAZINE HCL IV 20 MG VIAL IV PRN ×2 (13:12→23:01)
--- NOTE | 2020-12-22 13:12 | NUR ---
RN NOTES ADMINISTERED APRESOLINE 0.5 MG/ML IV PUSH FOR BP 185/88, P-92.
--- NOTE | 2020-12-22 13:28 | NUR ---
RN NOTES MEDICATION WERE ADMINISTERED FOR ANXIETY, ELEVATED BP EFFECTIVE BP 150/78, P-94. PATIENT USING INCENTIVE SPIROMETER, TOLERATED LUNCH 50%.
--- NOTE | 2020-12-22 19:30 | NUR ---
NURSING SUPPORT WORKER OPENING NOTES: RECEIVED PT A/OX4 IN BED RESTING COMFORTABLY. PATIENT IN NO S/SX OF ACUTE DISTRESS AT THIS TIME. NO SOB NOTED. PATIENT'S BREATHING IS EVEN AND UNLABORED. PATIENT IS ON HF VIA NC 40L 100%; TOLERATING WELL. PATIENT ON TELE MONITORING READING SINUS RHYTHM HR IS @70s AT THE TIME OF RECEIVED. PATIENT ON CCHO DIET; TOLERATES WELL.NOTED IV SITE ON L HAND # 20 AND R UA PICC LINE ; BOTH PATENT, INTACT AND FLUSHING WELL; NO S/S OF INFECTION OR INFILTRATION. WITH COMMODE AT BEDSIDE. SAFETY MEASURES HAVE BEEN PROVIDED &IMPLEMENTED. PATIENT BED ALARM IS ON. HEAD OF BED ELEVATED. BED IS LOCKED, IN LOWEST POSITION AND SIDE RAILS UP. CALL LIGHT WITHIN REACH OF THE PATIENT. APPLICABLE ISOLATION PRECAUTIONS IN PLACE. WILL CONTINUE TO MONITOR AND REASSESS FOR ANY CHANGES AND WILL CARRY OUT ANY ONGOING AND ACTIVE MD ORDER.
[2020-12-22] MEDS: *INSULIN REGULAR(HUMULIN R)HUM 100 UNIT/ML VIAL SQ PRN (21:44)
--- NOTE | 2020-12-22 22:15 | NUR ---
RN NOTES NOTED PT O2 SAT GOING BELOW 89%; PT CURRENTLY ON HI-FLOW 40L 100% FI02. PLACED PT ON NRB MASK @15L. HUMAN RESOURCES TEAM MEMBER MADE. COORDINATED WITH RT. WILL CONTINUE TO ASSESS AND MONITOR THROUGHOUT THE SHIFT. Addendum: 12/22/20 at 2230 by JONY LINDQUIST RN @2229 CURRENT 'PTS O2 SAT IS AT 94%.
--- NOTE | 2020-12-22 23:00 | NUR ---
RN NOTES NOTED PT'S SBP IS >160, PRN APRESOLINE GIVEN. COMMUNICATIONS DESIGNER MADE AWARE. WILL CONTINUE TO ASSESS AND MONITOR THROUGHOUT THE SHIFT.
[2020-12-22] MEDS: ZOLPIDEM TARTRATE 5 MG TABLET PO PRN (23:09)
[2020-12-23] VITALS (27 sets, daily range): BP systolic 145–178; BP diastolic 64–117
[2020-12-23] MEDS: hydrALAZINE HCL 25 MG TABLET PO SCH ×5 (00:08→23:09)
--- NOTE | 2020-12-23 04:00 | NUR ---
RN NOTES NO NOTED CHANGES IN PATIENT CONDITION AT THIS TIME; PATIENT VITALS STABLE, NO SIGNS OF ACUTE RESPIRATORY DISTRESS. AM PATIENT CARE RENDERED. WILL CONTINUE TO MONITOR AND REASSESS FOR ANY CHANGES THROUGHOUT THE SHIFT.
[2020-12-23 04:24] LABS: BASOPHILS % (AUTO) 0.5 % (0.0-2.0); EOSINOPHILS % (AUTO) 3.2 % (0.0-6.0); HEMATOCRIT 37 % (39-51); HEMOGLOBIN 12.4 g/dL (13.5-17.5); LYMPHOCYTES % (AUTO) 21.9 % (20.0-44.0); MEAN CORPUSCULAR HGB CONC 34 g/dl (31.0-36.0); MEAN CORPUSCULAR VOLUME 85 fL (80-96); MONOCYTES # (AUTO) 0.5 K/uL (0.1-1.30); NEUTROPHILS # (AUTO) 6.1 K/uL (1.8-8.9); NEUTROPHILS % (AUTO) 68.4 % (43.0-81.0); PLATELET COUNT (AUTO) 292 K/uL (150-450); RED BLOOD CELL COUNT(AUTO) 4.34 MIL/uL (4.5-6.0); WHITE BLOOD COUNT (AUTO) 8.9 K/uL (4.3-11.0)
[2020-12-23 04:42] LABS: CALCIUM, SERUM 8.8 mg/dL (8.5-10.1); CREATININE 0.9 mg/dL (0.6-1.3); PHOSPHORUS 3.3 mg/dL (2.5-4.9); POTASSIUM 3.4 mmol/L (3.5-5.1)
--- NOTE | 2020-12-23 06:49 | NUR ---
PAPER CONE MACHINE OPERATOR CLOSING NOTE: PATIENT REMAINS IN ROOM IN NO SIGNS OF RESPIRATORY DISTRESS, PATIENT STILL ON HF VIA NC @ 40L 100% AND 15L OF O2 VIA NRB MASK;TOLERATING WELL SATURATING @ >90% SP02. SAFETY MEASURES IMPLEMENTED, BED IN LOWEST POSITION, LOCKED, SIDE RAILS UP, CALL LIGHT WITHIN REACH. ALL NEEDS AND ORDERS ADDRESSED DURING THE SHIFT. IV ACCESS MAINTAINED INTACT, SECURED AND FLUSHING WELL. ALL DUE MEDS GIVEN ORDERED & SCHEDULED ; PATIENT TOLERATED WELL. PATIENT KEPT CLEAN AND COMFORTABLE WITHIN THE SHIFT. PATIENT ENDORSED TO INCOMING SHIFT RN WITH STABLE VITAL SIGN AND FOR CONTINUITY OF CARE.
[2020-12-23] MEDS: BLOOD SUGAR DIAGNOSTIC 1 EACH STRIP VI SCH ×4 (07:31→21:13)
[2020-12-23] MEDS: INSULIN REGULAR, HUMAN 100 UNIT/ML 3 ML VIAL SQ PRN ×3 (07:34→17:35)
--- NOTE | 2020-12-23 08:00 | NUR ---
RN/ICU- AWAKE, ALERT, ORIENTED X3, ON DOUBLE O2 ET UP, HF-40L/100% PLUS NRB. SATS.-94%.SOB W/ MINIMAL EXERTION. EKG SR W/ HR-74/MIN. BP-145/76.
[2020-12-23] MEDS: LISINOPRIL (20MG) 20 MG TABLET PO SCH (08:40)
[2020-12-23] MEDS: NIFEdipine XL (30MG) 30 MG TAB PO SCH (08:41)
[2020-12-23] MEDS: ATORVASTATIN 40 MG TABLET PO SCH (08:42)
[2020-12-23] MEDS: METOPROLOL TARTRATE 50 MG TABLET PO SCH ×2 (08:42→17:14)
[2020-12-23] MEDS: ENOXAPARIN SODIUM 40 MG/0.4 ML DISP.SYRIN SQ SCH ×2 (08:46→20:59)
[2020-12-23] MEDS: DEXAMETHASONE SOD PHOSPHATE 10 MG/ML VIAL IV SCH ×2 (09:00→11:18)
[2020-12-23] MEDS ORDERED: POTASSIUM CHLORIDE 20 MEQ TAB.PRT.SR PO SCH (09:30)
[2020-12-23] MEDS ORDERED: POTASSIUM CHLORIDE 20 MEQ TAB.PRT.SR PO ONE (09:30)
[2020-12-23] MEDS: hydrALAZINE HCL IV 20 MG VIAL IV PRN ×2 (12:25→21:02)
--- NOTE | 2020-12-23 12:25 | NUR ---
RN/ICU-BP-161/85, HR-84, MEDICATED W/ PRN, APRESOLINE 10MG SIVP. WILL REASSESS FOR PRN EFFECTIVENESS.
--- NOTE | 2020-12-23 14:00 | NUR ---
RN/ICU-PT. AMBULATED AND SAT ON CHAIR. ARNAV. WELL NO S/S OF DISTRESS.
--- NOTE | 2020-12-23 14:00 | NUR ---
RN/ICU-PT. C/O THROBBING HEADACHE 08/02. MEDICATED W/ TYLENOL 650MGPO. WILL REASSESS FOR PRN EFFECTIVENESS.
[2020-12-23] MEDS: ACETAMINOPHEN 325 MG TABLET PO PRN ×2 (14:08→20:58)
--- NOTE | 2020-12-23 17:30 | NUR ---
RN/ICU-PT. DINNER SERVED. ATE 95%, ARNAV. WELL.
--- NOTE | 2020-12-23 18:13 | NUR ---
RN/ICU- PT. REMAINS SITTING ON CHAIR, W/ DOUBLE O2 SET UP. SATS.-99%
--- NOTE | 2020-12-23 19:30 | NUR ---
INTERMODAL CUSTOMER SERVICE OPENING NOTES: RECEIVED PT A/OX4 SITTING ON THE CHAIR RESTING COMFORTABLY. PATIENT IN NO S/SX OF ACUTE DISTRESS AT THIS TIME. NO SOB NOTED. PATIENT'S BREATHING IS EVEN AND UNLABORED. PATIENT IS ON HF VIA NC 40L 100%; TOLERATING WELL WITH 02 SAT OF 99%. PATIENT ON TELE MONITORING READING SINUS RHYTHM HR IS @60s AT THE TIME OF RECEIVED. PATIENT ON CCHO DIET; TOLERATES WELL.NOTED IV SITE @ R UA PICC LINE ; BOTH PATENT, INTACT AND FLUSHING WELL; NO S/S OF INFECTION OR INFILTRATION. WITH COMMODE AT BEDSIDE. SAFETY MEASURES HAVE BEEN PROVIDED &IMPLEMENTED. PATIENT BED ALARM IS ON. HEAD OF BED ELEVATED. BED IS LOCKED, IN LOWEST POSITION AND SIDE RAILS UP. CALL LIGHT WITHIN REACH OF THE PATIENT. APPLICABLE ISOLATION PRECAUTIONS IN PLACE. WILL CONTINUE TO MONITOR AND REASSESS FOR ANY CHANGES AND WILL CARRY OUT ANY ONGOING AND ACTIVE MD ORDER.
--- NOTE | 2020-12-23 21:00 | NUR ---
RN NOTES NOTED PT'S SBP IS >160, PRN APRESOLINE GIVEN. INSURANCE ADMINISTRATOR MADE AWARE. WILL CONTINUE TO ASSESS AND MONITOR THROUGHOUT THE SHIFT.
[2020-12-23] MEDS: *INSULIN REGULAR(HUMULIN R)HUM 100 UNIT/ML VIAL SQ PRN (21:20)
--- NOTE | 2020-12-23 22:00 | NUR ---
RN NOTES NOTED PT'S SBP IS still >160 ( BP: 177/94 AND HR: 69) at 2200 AFTER GIVING APRESOLINE PRN @2100; FLORAL MANAGER MADE AWARE AND INFORMED ONCALL MD; AWAITING FOR ORDERS FROM [facility]. WILL CARRY OUT ORDER ONCE RECEIVED.
[2020-12-23] MEDS: ZOLPIDEM TARTRATE 5 MG TABLET PO PRN (22:11)
[2020-12-24] VITALS (28 sets, daily range): BP systolic 122–176; BP diastolic 55–97
--- NOTE | 2020-12-24 03:05 | NUR ---
RN NOTES NOTED PT'S SBP IS >160, PRN APRESOLINE GIVEN. DIRECTOR OF SALES SUPPORT MADE AWARE. WILL CONTINUE TO ASSESS AND MONITOR THROUGHOUT THE SHIFT.
[2020-12-24] MEDS: hydrALAZINE HCL IV 20 MG VIAL IV PRN (03:08)
--- NOTE | 2020-12-24 03:15 | NUR ---
RN NOTES NOTED PT O2 SAT GOING BELOW 90%; PT CURRENTLY ON HI-FLOW 40L 100% FI02. PLACED PT ON NRB MASK @15L. GTA MADE. COORDINATED WITH RT. WILL CONTINUE TO ASSESS AND MONITOR THROUGHOUT THE SHIFT.
--- NOTE | 2020-12-24 04:00 | NUR ---
RN NOTES NO NOTED CHANGES IN PATIENT CONDITION AT THIS TIME; NO SIGNS OF ACUTE RESPIRATORY DISTRESS. AM PATIENT CARE RENDERED. MAIL PROCESSOR MADE AWARE. WILL CONTINUE TO MONITOR AND REASSESS FOR ANY CHANGES THROUGHOUT THE SHIFT.
[2020-12-24 04:33] LABS: BASOPHILS % (AUTO) 0.6 % (0.0-2.0); EOSINOPHILS % (AUTO) 3.7 % (0.0-6.0); HEMATOCRIT 37 % (39-51); HEMOGLOBIN 12.6 g/dL (13.5-17.5); LYMPHOCYTES # (AUTO) 1.8 K/uL (0.8-4.8); LYMPHOCYTES % (AUTO) 21.1 % (20.0-44.0); MEAN CORPUSCULAR HGB CONC 34 g/dl (31.0-36.0); MEAN CORPUSCULAR VOLUME 86 fL (80-96); MONOCYTES # (AUTO) 0.6 K/uL (0.1-1.30); NEUTROPHILS # (AUTO) 5.8 K/uL (1.8-8.9); NEUTROPHILS % (AUTO) 67.6 % (43.0-81.0); PLATELET COUNT (AUTO) 255 K/uL (150-450); RED BLOOD CELL COUNT(AUTO) 4.35 MIL/uL (4.5-6.0); WHITE BLOOD COUNT (AUTO) 8.6 K/uL (4.3-11.0)
[2020-12-24 04:43] LABS: CALCIUM, SERUM 8.6 mg/dL (8.5-10.1); PHOSPHORUS 3.6 mg/dL (2.5-4.9); POTASSIUM 3.6 mmol/L (3.5-5.1)
[2020-12-24] MEDS: hydrALAZINE HCL 25 MG TABLET PO SCH ×3 (05:08→17:23)
[2020-12-24] MEDS: ACETAMINOPHEN 325 MG TABLET PO PRN ×2 (06:16→12:37)
--- NOTE | 2020-12-24 07:10 | NUR ---
SHIFT STACKER NOTE RECEIVED PATIENT IN BED RESTING IN MODERATE HIGH BACK REST, IN NO SIGNS OF RESPIRATORY DISTRESS, PATIENT ON HF VIA NC @ 40L 100% AND 15L OF O2 VIA NRB MASK;TOLERATING WELL SATURATING @ 94%. IV ACCESS MAINTAINED INTACT, SECURED AND FLUSHING WELL. SAFETY MEASURES IMPLEMENTED, BED IN LOWEST POSITION, LOCKED, SIDE RAILS UP, CALL LIGHT WITHIN REACH. WILL CONTINUE TO MONITOR.
[2020-12-24] MEDS: BLOOD SUGAR DIAGNOSTIC 1 EACH STRIP VI SCH ×4 (07:48→21:53)
[2020-12-24] MEDS: INSULIN REGULAR, HUMAN 100 UNIT/ML 3 ML VIAL SQ PRN ×3 (07:50→17:25)
[2020-12-24] MEDS: LISINOPRIL (20MG) 20 MG TABLET PO SCH (08:16)
[2020-12-24] MEDS: METOPROLOL TARTRATE 50 MG TABLET PO SCH ×2 (08:17→16:46)
[2020-12-24] MEDS: NIFEdipine XL (30MG) 30 MG TAB PO SCH (08:17)
[2020-12-24] MEDS: ATORVASTATIN 40 MG TABLET PO SCH (08:17)
[2020-12-24] MEDS: ENOXAPARIN SODIUM 40 MG/0.4 ML DISP.SYRIN SQ SCH ×2 (08:21→21:35)
[2020-12-24] MEDS: DEXAMETHASONE SOD PHOSPHATE 10 MG/ML VIAL IV SCH (12:30)
--- NOTE | 2020-12-24 19:23 | NUR ---
HYDRANT SETTER NOTE PATIENT IN BED RESTING IN MODERATE HIGH BACK REST, IN NO SIGNS OF RESPIRATORY DISTRESS THROUGHOUT THE SHIFT, PATIENT ON HF VIA NC @ 40L 100% ;TOLERATING WELL SATURATING @ 95%. IV ACCESS MAINTAINED INTACT, SECURED AND FLUSHING WELL. SAFETY MEASURES IMPLEMENTED, BED IN LOWEST POSITION, LOCKED, SIDE RAILS UP, CALL LIGHT WITHIN REACH. ENDORSED TO COMPANY DANCER NURSE FOR SHAHNAZ.
--- NOTE | 2020-12-24 19:25 | NUR ---
ICU/AIR QUALITY SPECIALIST RECIEVED REPORT FROM DAY SHIFT NURSE. SEE FLOWSHEET FOR ASSESSMENT, THERE IS NO SKIN ISSUES THAT NEED TO BE ADDRESSED ON THE FLOWSHEET. THERE ARE NO IV DRIPS WHICH NEED TO BE ADDRESSED ON IV SPREAD SHEET. PT TURNS AND REPOSITIONS SELF FOR COMFORT. WILL CONTINUE TO MONITOR THIS PT. CALL LIGHT WITHIN REACH.
--- NOTE | 2020-12-24 20:24 | NUR ---
PT IS AWAKE ALERT ON HFNC 40L, 100% FIO2 + NRB. O2 SAT 93%-96%. CONTINUE TO MONITOR CLOSELY. Addendum: 12/24/20 at 2025 by SHANE BRAR RT Amended: Links added.
[2020-12-24] MEDS: *INSULIN REGULAR(HUMULIN R)HUM 100 UNIT/ML VIAL SQ PRN (21:56)
--- NOTE | 2020-12-24 22:20 | NUR ---
ICU/CAN PILER PT APPEARS TO BE ASLEEP, RESTING COMFORTABLE WITH NO SIGNS OF DISTRESS.CALL LIGHT WITHIN REACH.
[2020-12-25] VITALS (25 sets, daily range): BP systolic 124–153; BP diastolic 58–98
[2020-12-25] MEDS: ACETAMINOPHEN 325 MG TABLET PO PRN ×5 (00:08→20:34)
[2020-12-25] MEDS: hydrALAZINE HCL 25 MG TABLET PO SCH ×4 (00:18→17:26)
--- NOTE | 2020-12-25 00:30 | NUR ---
ICU/GLOBAL PROFESSIONAL MIDNIGHT TEMP. WAS DONE, PT UP TO USE URINAL. NO SOB SEEN, PT'S SATURATION REMAINS IN THE 90'S, HOWEVER WHEN PT TOOK OF OXYGEN TO BLOW HIS NOSE SATURATION FELL TO HIGH 70'S. PT THEN PUT BACK ON HIGH FLOW OXYGEN ALONG WITH NON REBREATHER.
--- NOTE | 2020-12-25 02:10 | NUR ---
ICU/COUNTY TREASURER PT AMBULATED TO THE BATHROOM, WHILE IN THE BATHROOM, BEDDING WAS CHANGED THEN PT WAS IN CHAIR WAS ABLE TO CHANGE THE GOWN AND PT CLEANED HIMSELF.
--- NOTE | 2020-12-25 04:15 | NUR ---
ICU/CYCLE DIRECTOR MORNING LABS WERE DRAWN, AWAIT FOR ANY ABNORMAL RESULTS.
[2020-12-25 04:36] LABS: CALCIUM, SERUM 8.5 mg/dL (8.5-10.1); POTASSIUM 3.6 mmol/L (3.5-5.1)
[2020-12-25 04:45] LABS: BASOPHILS % (AUTO) 0.3 % (0.0-2.0); EOSINOPHILS % (AUTO) 2.9 % (0.0-6.0); HEMATOCRIT 37 % (39-51); HEMOGLOBIN 12.2 g/dL (13.5-17.5); LYMPHOCYTES # (AUTO) 1.6 K/uL (0.8-4.8); LYMPHOCYTES % (AUTO) 12.2 % (20.0-44.0); MEAN CORPUSCULAR HGB CONC 33 g/dl (31.0-36.0); MEAN CORPUSCULAR VOLUME 86 fL (80-96); MONOCYTES # (AUTO) 0.8 K/uL (0.1-1.30); MONOCYTES % (AUTO) 5.8 % (2.0-12.0); NEUTROPHILS # (AUTO) 10.2 K/uL (1.8-8.9); NEUTROPHILS % (AUTO) 78.8 % (43.0-81.0); PLATELET COUNT (AUTO) 272 K/uL (150-450); RED BLOOD CELL COUNT(AUTO) 4.29 MIL/uL (4.5-6.0)
--- NOTE | 2020-12-25 06:34 | NUR ---
ICU/[id number] ARMOR CREWMAN PT COMPLAINED ABOUT A HEADACHE, GAVE TYLENOL FOR THIS. WILL CONTINUE TO MONITOR THIS PT.
[2020-12-25] MEDS: BLOOD SUGAR DIAGNOSTIC 1 EACH STRIP VI SCH ×4 (06:40→20:51)
[2020-12-25] MEDS: INSULIN REGULAR, HUMAN 100 UNIT/ML 3 ML VIAL SQ PRN ×3 (06:42→17:27)
--- NOTE | 2020-12-25 07:15 | NUR ---
IMPROVEMENT NURSE NOTE Received patient comfortably sitting up in a high back rest chair. Patient is on HF via NC @ 40L 100% and 15L )2 via NRB mask, patient is tolerating current settings well. No SOB, no respiratory distress, O2 sat @97%. VS within patient's baseline, no complaints of pain at this time. Patient's RUE PICC patent and intact with dry and clean dressing. Call light within easy reach. Will continue to monitor.
[2020-12-25] MEDS: ENOXAPARIN SODIUM 40 MG/0.4 ML DISP.SYRIN SQ SCH ×2 (08:11→20:34)
[2020-12-25] MEDS: DEXAMETHASONE SOD PHOSPHATE 10 MG/ML VIAL IV SCH (08:12)
[2020-12-25] MEDS: ATORVASTATIN 40 MG TABLET PO SCH (08:12)
[2020-12-25] MEDS: METOPROLOL TARTRATE 50 MG TABLET PO SCH ×2 (08:12→17:00)
[2020-12-25] MEDS: LISINOPRIL (20MG) 20 MG TABLET PO SCH (08:12)
[2020-12-25] MEDS: NIFEdipine XL (30MG) 30 MG TAB PO SCH (08:13)
--- NOTE | 2020-12-25 08:30 | NUR ---
RN Notes All due meds given as ordered.
[2020-12-25] MEDS: LORAZEPAM 1 MG TABLET PO PRN (14:49)
--- NOTE | 2020-12-25 18:33 | NUR ---
LOAN AND CREDIT MANAGER CLOSING NOTE Patient comfortably resting in bed, still on HF via NC @40l 100% and 15 L O2 via NRB mask. Patient tolerating settings well and remains between 95-100% O2 sat at rest. No SOB at this time, no respiratory distress. Patient denies any pain. Patient's RUE PICC Line remain patent and intact. All needs met, kept patient clean and comfortable. All due meds given as ordered. Call light within easy reach, bed at lowest position, locked with side rails up. Will endorse care to incoming nurse for continuity of care.
--- NOTE | 2020-12-25 19:45 | NUR ---
COMBAT ENGINEER OPENING NOTE Received patient sitting comfortably in bed, high fowlers position. Patient is on High Flow O2 via NC @ 40L 100% FiO2 and 15 L via non-rebreather mask, patient is tolerating current settings well. No SOB, no respiratory distress, with O2 sat @ 95%. VS within patient's baseline, no complaints of pain at this time. (R) UA PICC line noted, flushed and patent with clean and dry dressing. Safety measures implemented: Call light within easy reach, bed locked in lowest position. pt. is ambulatory and encouraged to call for assistance r/t possible O2 desaturation. No acute distress noted at this time.
--- NOTE | 2020-12-25 20:30 | NUR ---
FOOD WRITER NOTE PRN DOSE OF ACETAMINOPHEN 650 MG PO Q6H GIVEN FOR PAIN LEVEL 4/10 AND TEMPERATURE OF 100.0 FAHRENHEIT.
[2020-12-25] MEDS: *INSULIN REGULAR(HUMULIN R)HUM 100 UNIT/ML VIAL SQ PRN (20:53)
--- NOTE | 2020-12-25 21:00 | NUR ---
SPECK DYER NOTE POC GLUCOSE TEST COMPLETED, 226MG/DL. 4 UNITS OF INSULIN SQ GIVEN PER SLIDING SCALE
[2020-12-26] VITALS (25 sets, daily range): BP systolic 101–160; BP diastolic 37–88
[2020-12-26] MEDS: hydrALAZINE HCL 25 MG TABLET PO SCH ×5 (00:16→23:43)
[2020-12-26] MEDS: ACETAMINOPHEN 325 MG TABLET PO PRN ×2 (02:38→20:36)
--- NOTE | 2020-12-26 02:40 | NUR ---
LECTURER IN MARKETING NOTE PRN DOSE OF ACETAMINOPHEN 650 MG PO Q6H GIVEN FOR PAIN LEVEL 5/10 AND BY PATIENT REQUEST.
[2020-12-26] MEDS: ZOLPIDEM TARTRATE 5 MG TABLET PO PRN (03:15)
--- NOTE | 2020-12-26 03:35 | NUR ---
UTILITY OPERATOR NOTE PRN DOSE OF AMBIEN GIVEN PER PT REQUEST STATES HE IS SUFFERING FROM INSOMNIA.
--- NOTE | 2020-12-26 06:24 | NUR ---
REGULATORY PRODUCT MANAGER CLOSING NOTE Patient sitting in chair, on High Flow O2 via NC @ 40L 100% FiO2 and 15 L via non-rebreather mask, patient is tolerating current settings well. No SOB, no respiratory distress, with O2 sat @ 95%. Pt. is ambulatory and encouraged to call for assistance r/t possible O2 desaturation. VS within patient's baseline, no complaints of pain at this time. PRN doses of acetaminophen given for fever and pain; PRN dose of Ambien given for insomnia, both effective. (R) UA PICC line flushed and patent with clean and dry dressing. Pt. kept clean and dry throughout shift. Incentive spirometry encouraged throughout the night along with deep breathing exercises. All needs met and all orders completed. Safety measures implemented: Call light within easy reach, bed locked in lowest position. No acute distress noted at this time. Will endorse to morning shift RN.
--- NOTE | 2020-12-26 07:30 | NUR ---
SLICER MACHINE OPERATOR OPENING NOTES Patient is alert and oriented, received sitting in the bedside chair. Patient on high flow nasal cannula 40 liters with fi02 of 100%. Patient is free of s/sx of respiratory distress. No c/o pain or discomfort. Patient teaching done regarding safety and fall precautions. Right upper arm picc line intact and flushes well. Call light with in reach.
[2020-12-26] MEDS: BLOOD SUGAR DIAGNOSTIC 1 EACH STRIP VI SCH ×4 (07:43→20:46)
--- NOTE | 2020-12-26 07:45 | NUR ---
Patient's currently on only high flow at 40 liters with fi02 of 100% and tolerating well with saturation of 97%. Patient seen by MD Granados and per md to titrate fi02 and monitor. RT made aware.
--- NOTE | 2020-12-26 08:00 | NUR ---
Patient on only high flow nasal cannula with 40 liters and fi02 of 90% WITH 02 OF 97%.
[2020-12-26] MEDS: INSULIN REGULAR, HUMAN 100 UNIT/ML 3 ML VIAL SQ PRN ×3 (08:29→18:05)
[2020-12-26] MEDS: METOPROLOL TARTRATE 50 MG TABLET PO SCH ×2 (08:45→17:25)
[2020-12-26] MEDS: ATORVASTATIN 40 MG TABLET PO SCH (08:45)
[2020-12-26] MEDS: DEXAMETHASONE SOD PHOSPHATE 10 MG/ML VIAL IV SCH (08:45)
[2020-12-26] MEDS: NIFEdipine XL (30MG) 30 MG TAB PO SCH (08:46)
[2020-12-26] MEDS: LISINOPRIL (20MG) 20 MG TABLET PO SCH (08:46)
[2020-12-26] MEDS: FAMOTIDINE (20 MG) 20 MG TABLET PO SCH (08:55)
[2020-12-26] MEDS: ENOXAPARIN SODIUM 40 MG/0.4 ML DISP.SYRIN SQ SCH ×2 (08:56→20:35)
--- NOTE | 2020-12-26 09:15 | NUR ---
Patient transferred back to bed and patient's 02 91% only on high flow and requested to put non rebreather mask 15 L.
[2020-12-26] MEDS: GUAIFENESIN 300 MG/15 ML UDC PO PRN ×2 (14:12→20:36)
--- NOTE | 2020-12-26 18:39 | NUR ---
FARM LABORER CLOSING NOTES Patient is alert and oriented x 4 and currently sitting in the bedside chair. Patient is on high flow nasal cannula 40 liters with fi02 of 90%. Patient used his non rebreather on and off during shift at 15 liters. Currently patient saturating well on high flow only at 97%. Patient is free of s/sx of respiratory distress. No c/o pain or discomfort. Patient teaching done regarding safety and fall precautions due to patient walking to the bathroom. Noted with one bm(small) during shift. Noted with productive cough with pink tinged phlem. Informed MD Granados and received order for robitussin q6h prn and patient's cough controlled.Right upper arm picc line intact and flushes well. Call light with in reach.Will endorse to next shift for SHAHNAZ.
--- NOTE | 2020-12-26 19:45 | NUR ---
HIGH SCHOOL SPORTS COACH OPENING NOTE Received patient sitting comfortably in chair. Patient is on High Flow O2 via NC @ 40L 90% FiO2 and 15 L via non-rebreather mask, patient is tolerating current settings well. No SOB, no respiratory distress noted, with O2 sat @ 95%. VS within patient's baseline, no complaints of pain at this time. (R) UA PICC line noted, flushed and patent with clean and dry dressing. Safety measures implemented: Call light within easy reach, bed locked in lowest position. Pt. is ambulatory and encouraged to call for assistance r/t possible O2 desaturation. No acute distress noted at this time.
--- NOTE | 2020-12-26 20:21 | NUR ---
PT IS AWAKE ALERT ON HFNC 40L 90%. PT IS TOLERATING SETTINGS. CONTINUE TO MONITOR. Addendum: 12/26/20 at 2021 by SHANE BRAR RT Amended: Links added.
--- NOTE | 2020-12-26 20:45 | NUR ---
PIPELINE SUPERINTENDENT DIVISION NOTE PRN DOSE OF ACETAMINOPHEN 650 MG PO Q6H GIVEN FOR PAIN LEVEL 4/10 AND ROBITUSSIN PRN Q6H GIVEN FOR PRODUCTIVE COUGH
[2020-12-26] MEDS: *INSULIN REGULAR(HUMULIN R)HUM 100 UNIT/ML VIAL SQ PRN (20:47)
--- NOTE | 2020-12-26 21:15 | NUR ---
TEXTILE ARTIST NOTE POC GLUCOSE TEST COMPLETED, 288MG/DL. 6 UNITS OF INSULIN SQ GIVEN PER SLIDING SCALE
[2020-12-27] VITALS (25 sets, daily range): BP systolic 125–168; BP diastolic 59–89
[2020-12-27 04:38] LABS: BASOPHILS # (AUTO) 0.1 K/uL (0.0-0.2); BASOPHILS % (AUTO) 0.5 % (0.0-2.0); HEMATOCRIT 35 % (39-51); HEMOGLOBIN 11.7 g/dL (13.5-17.5); LYMPHOCYTES # (AUTO) 1.9 K/uL (0.8-4.8); LYMPHOCYTES % (AUTO) 14.6 % (20.0-44.0); MEAN CORPUSCULAR HGB CONC 33 g/dl (31.0-36.0); MEAN CORPUSCULAR VOLUME 87 fL (80-96); MONOCYTES # (AUTO) 0.9 K/uL (0.1-1.30); MONOCYTES % (AUTO) 6.5 % (2.0-12.0); NEUTROPHILS # (AUTO) 10.3 K/uL (1.8-8.9); NEUTROPHILS % (AUTO) 77.4 % (43.0-81.0); PLATELET COUNT (AUTO) 257 K/uL (150-450); RED BLOOD CELL COUNT(AUTO) 4.04 MIL/uL (4.5-6.0); WHITE BLOOD COUNT (AUTO) 13.3 K/uL (4.3-11.0)
[2020-12-27 04:48] LABS: CALCIUM, SERUM 8.7 mg/dL (8.5-10.1); CREATININE 0.9 mg/dL (0.6-1.3); PHOSPHORUS 4.2 mg/dL (2.5-4.9); POTASSIUM 3.9 mmol/L (3.5-5.1)
[2020-12-27] MEDS: hydrALAZINE HCL 25 MG TABLET PO SCH ×3 (05:45→17:05)
--- NOTE | 2020-12-27 06:25 | NUR ---
MOTOR ANALYST CLOSING NOTE Patient laying in bed semi fowlers position, on High Flow O2 via NC @ 40L 90% FiO2 and 15 L via non-rebreather mask, patient is tolerating current settings well. No SOB, no respiratory distress, with O2 sat > @ 95%. Pt. is ambulatory and encouraged to call for assistance r/t possible O2 desaturation. VS within patient's baseline, no complaints of pain at this time. PRN doses of acetaminophen given for pain; PRN dose of Robitussin given for productive cough, both effective. (R) UA PICC line flushed and patent with clean and dry dressing. Pt. kept clean and dry throughout shift. Incentive spirometry encouraged throughout the night along with deep breathing exercises and proning positioning. All needs met and all orders completed. Safety measures implemented: Call light within easy reach, bed locked in lowest position. No acute distress noted at this time. Will endorse to morning shift RN.
[2020-12-27] MEDS: INSULIN REGULAR, HUMAN 100 UNIT/ML 3 ML VIAL SQ PRN ×3 (07:50→17:11)
[2020-12-27] MEDS: BLOOD SUGAR DIAGNOSTIC 1 EACH STRIP VI SCH ×4 (07:50→21:30)
--- NOTE | 2020-12-27 07:55 | NUR ---
WIND FIELD MANAGER OPENING NOTES Patient is alert and oriented, received sitting in the bedside chair. Patient on high flow nasal cannula 40 liters with fi02 of 90%. Patient is free of s/sx of respiratory distress. No c/o pain or discomfort. Patient teaching done regarding safety and fall precautions. Right upper arm picc line intact and flushes well. Call light with in reach.
[2020-12-27] MEDS: NIFEdipine XL (30MG) 30 MG TAB PO SCH (08:20)
[2020-12-27] MEDS: LISINOPRIL (20MG) 20 MG TABLET PO SCH (08:20)
[2020-12-27] MEDS: METOPROLOL TARTRATE 50 MG TABLET PO SCH ×2 (08:21→17:05)
[2020-12-27] MEDS: ATORVASTATIN 40 MG TABLET PO SCH (08:21)
[2020-12-27] MEDS: DEXAMETHASONE SOD PHOSPHATE 10 MG/ML VIAL IV SCH (08:21)
[2020-12-27] MEDS: FAMOTIDINE (20 MG) 20 MG TABLET PO SCH (08:21)
--- NOTE | 2020-12-27 08:30 | NUR ---
FI02 lowered to 85%, 02 saturation of 94% and will monitor closely.
[2020-12-27] MEDS: ACETAMINOPHEN 325 MG TABLET PO PRN ×2 (08:40→18:42)
[2020-12-27] MEDS: ENOXAPARIN SODIUM 40 MG/0.4 ML DISP.SYRIN SQ SCH ×2 (09:53→21:16)
--- NOTE | 2020-12-27 11:15 | NUR ---
Fi 02 lowered to 75% and lonnie well, patient on nasal cannula high flow saturating 95%.
[2020-12-27 16:54] LABS: MAGNESIUM 2.6 mg/dL (1.8-2.4)
--- NOTE | 2020-12-27 17:30 | NUR ---
FI 02 lowered t0 65 % and patient tolerating well with 02 sat of 95%.
--- NOTE | 2020-12-27 18:47 | NUR ---
HIGHWAY PATROL PILOT CLOSING NOTES Patient is alert and oriented, sitting in the bedside chair. Patient on high flow nasal cannula 40 liters with fi02 of 65%. Patient is free of s/sx of respiratory distress. Patient c/o pain generalized pain and was given prn tylenol at 1842pm. Patient teaching done regarding safety and fall precautions. Right upper arm picc line intact and flushes well. Call light with in reach.Will endorse to next shift for SHAHNAZ.
--- NOTE | 2020-12-27 19:45 | NUR ---
FAMILY MEMBER CARETAKER OPENING NOTE Received patient sitting comfortably in chair. Patient is on High Flow O2 via NC @ 30L 65% FiO2 and 15 L via non-rebreather mask, patient is tolerating current settings well. No SOB, no respiratory distress noted, with O2 sat @ 95%. VS within patient's baseline, no complaints of pain at this time. (R) UA PICC line noted, flushed and patent, dressing soiled and will be completing dressing change. Safety measures implemented: Call light within easy reach, bed locked in lowest position. Pt. is ambulatory and encouraged to call for assistance r/t possible O2 desaturation. No acute distress noted at this time.
[2020-12-27] MEDS: *INSULIN REGULAR(HUMULIN R)HUM 100 UNIT/ML VIAL SQ PRN (21:31)
[2020-12-27] MEDS: GUAIFENESIN 300 MG/15 ML UDC PO PRN (21:35)
--- NOTE | 2020-12-27 21:36 | NUR ---
LPN MEDICAL ASSISTANT NOTE POC GLUCOSE TEST COMPLETED, 328MG/DL. 8 UNITS OF INSULIN SQ GIVEN PER SLIDING SCALE
[2020-12-28] VITALS (20 sets, daily range): BP systolic 123–166; BP diastolic 61–99
[2020-12-28] MEDS: hydrALAZINE HCL 25 MG TABLET PO SCH ×4 (00:16→17:39)
[2020-12-28] MEDS: hydrALAZINE HCL IV 20 MG VIAL IV PRN (02:16)
--- NOTE | 2020-12-28 02:30 | NUR ---
MANAGER PART NOTE PRN DOSE OF HYDRALAZINE 10MG GIVEN PER MD ORDER FOR HYPERTENSION 168/90
[2020-12-28 04:50] LABS: BASOPHILS # (AUTO) 0.1 K/uL (0.0-0.2); BASOPHILS % (AUTO) 0.6 % (0.0-2.0); EOSINOPHILS % (AUTO) 1.1 % (0.0-6.0); HEMATOCRIT 34 % (39-51); HEMOGLOBIN 11.4 g/dL (13.5-17.5); LYMPHOCYTES # (AUTO) 2.2 K/uL (0.8-4.8); LYMPHOCYTES % (AUTO) 19.7 % (20.0-44.0); MEAN CORPUSCULAR HGB CONC 34 g/dl (31.0-36.0); MEAN CORPUSCULAR VOLUME 87 fL (80-96); MONOCYTES % (AUTO) 8.9 % (2.0-12.0); NEUTROPHILS # (AUTO) 7.6 K/uL (1.8-8.9); NEUTROPHILS % (AUTO) 69.7 % (43.0-81.0); PLATELET COUNT (AUTO) 240 K/uL (150-450); RED BLOOD CELL COUNT(AUTO) 3.89 MIL/uL (4.5-6.0); WHITE BLOOD COUNT (AUTO) 10.9 K/uL (4.3-11.0)
--- NOTE | 2020-12-28 06:00 | NUR ---
GUIDE NOTE PRN DOSE OF ACETAMINOPHEN 650 MG Q6H GIVEN FOR HEADACHE.
[2020-12-28] MEDS: ACETAMINOPHEN 325 MG TABLET PO PRN ×3 (06:02→20:00)
--- NOTE | 2020-12-28 06:31 | NUR ---
POWER GENERATING PLANT OPERATOR CLOSING NOTE Patient laying in bed semi fowlers position, on High Flow O2 via NC @ 30L 65% FiO2 and 15 L via non-rebreather mask, patient is tolerating current settings well. No SOB, no respiratory distress, with O2 sat > @ 95%. Pt. is ambulatory and encouraged to call for assistance r/t possible O2 desaturation. VS within patient's baseline, no complaints of pain at this time. PRN doses of acetaminophen given for pain; PRN dose of Robitussin given for productive cough, and PRN dose of hydralazine given for hypertension, all effective. (R) UA PICC line flushed and patent with clean and dry dressing. Pt. kept clean and dry throughout shift. Incentive spirometry encouraged throughout the night along with deep breathing exercises and proning positioning. All needs met and all orders completed. Safety measures implemented: Call light within easy reach, bed locked in lowest position. No acute distress noted at this time. Will endorse to morning shift RN.
--- NOTE | 2020-12-28 07:10 | NUR ---
MAINTENANCE INSPECTOR OPENING NOTES RECEIVED PT RESTING IN BED. A/O X4. ON HFNC @30L FiO2 65% and 15L NRB MASK. O2 SAT @95%. NO SOB OR ANY S/S OF ACUTE RESPIRATORY DISTRESS NOTED. NO PAIN REPORTED AT THIS TIME. IV ACCESS ON VON PICC LINE INTACT, PATENT AND FLUSHED. SAFETY MEASURES IMPLEMENTED. CALL LIGHT WITHIN REACH. HOB ELEVATED. BED LOCKED AND IN LOWEST POSITION WITH SIDE RAILS UP X2. WILL CONTINUE TO MONITOR.
[2020-12-28 08:29] LABS: ABG OXYGEN SATURATION 90.2 % (92.0-98.5); ABG PCO2 32.5 mmHg (35.0-45.0); ABG PH 7.469 (7.350-7.450); ABG PO2 56.3 mmHg (75.0-100.0); AaDO2 371.8 mmHg; COHb 0.2 % (0.5-1.5); SITE, ABG Right Radial; VENT MODE, BG HFNC 30L/65%
[2020-12-28] MEDS: BLOOD SUGAR DIAGNOSTIC 1 EACH STRIP VI SCH ×4 (08:59→21:02)
[2020-12-28] MEDS: ATORVASTATIN 40 MG TABLET PO SCH (09:00)
[2020-12-28] MEDS: DEXAMETHASONE SOD PHOSPHATE 10 MG/ML VIAL IV SCH (09:00)
[2020-12-28] MEDS: METOPROLOL TARTRATE 50 MG TABLET PO SCH ×2 (09:01→17:39)
[2020-12-28] MEDS: LISINOPRIL (20MG) 20 MG TABLET PO SCH (09:01)
[2020-12-28] MEDS: FAMOTIDINE (20 MG) 20 MG TABLET PO SCH (09:02)
[2020-12-28] MEDS: NIFEdipine XL (30MG) 30 MG TAB PO SCH (09:02)
[2020-12-28] MEDS: ENOXAPARIN SODIUM 40 MG/0.4 ML DISP.SYRIN SQ SCH ×2 (09:08→20:51)
[2020-12-28] MEDS: INSULIN REGULAR, HUMAN 100 UNIT/ML 3 ML VIAL SQ PRN ×3 (09:09→17:45)
--- NOTE | 2020-12-28 19:03 | NUR ---
RN CLOSING NOTES TRANSFERRED PT TO [facility] ROOM 106 PER PROTOCOL. NO SIGNIFICANT CHANGES THROUGHOUT THE SHIFT. NO SOB OR ANY DISTRESS NOTED. NO PAIN REPORTED AT THIS TIME. KEPT CLEAN AND COMFORTABLE. ALL DUE MEDS GIVEN. NEEDS ATTENDED. SAFETY MEASURES IN PLACE. WILL ENDORSE TO NIGHT RN FOR SHAHNAZ.
--- NOTE | 2020-12-28 19:49 | NUR ---
RN NOTE PATIENT IN BED, AWAKE AND ALERT. ORIENTED X4. ON HFNC @ 30L FIO2 65% AND 15L NRB MASK, O2 SAT 95%. NO SOB NOTED OR ANY ACUTE RESPIRATORY DISTRESS NOTED. COMPLAINED OF MILD GENERALIZED BODY PAIN, WILL ADMINISTER DUE PRN PAIN MEDS. VON PICC LINE PATENT AND INTACT, NO SIGNS OF INFILTRATION. BED LOCKED AND IN LOWEST POSITION. CALL LIGHT WITHIN REACH. ALL NEEDS ANTICIPATED.
[2020-12-28] MEDS: *INSULIN REGULAR(HUMULIN R)HUM 100 UNIT/ML VIAL SQ PRN (21:04)
[2020-12-29] VITALS: BP 151/72
[2020-12-29] MEDS: GUAIFENESIN 300 MG/15 ML UDC PO PRN
[2020-12-29] MEDS: hydrALAZINE HCL 25 MG TABLET PO SCH ×5 (00:01→23:57)
[2020-12-29] MEDS: ZOLPIDEM TARTRATE 5 MG TABLET PO PRN (00:06)
[2020-12-29 04:00] VITALS: BP 143/76
--- NOTE | 2020-12-29 07:07 | NUR ---
RN NOTE PATIENT AWAKE AND ALERT. ORIENTED X4. ON HFNC @ 30L FIO2 65% AND 15L NRB MASK, O2 SAT 96%. NO SOB NOTED. VON PICC LINE PATENT AND INTACT, NO SIGNS OF INFILTRATION. ALL DUE MEDS GIVEN ORDERED. BED LOCKED AND IN LOWEST POSITION. CALL LIGHT WITHIN REACH. WILL ENDORSE TO AM SHIFT.
--- NOTE | 2020-12-29 07:28 | NUR ---
RN OPENING NOTE Pt is A/O X 4, On high flow NC 30L 65% FI02 Satting at 97%, denies any respiratory distress. On contact/droplet isolation for + COVID. VON PICC line patent with no s/sx of infiltration. Safety precautions implemented, bed locked in lowest position, call light within reach.
[2020-12-29] MEDS: BLOOD SUGAR DIAGNOSTIC 1 EACH STRIP VI SCH ×4 (07:52→22:18)
[2020-12-29 08:00] VITALS: BP 153/70
[2020-12-29] MEDS: DEXAMETHASONE SOD PHOSPHATE 10 MG/ML VIAL IV SCH (08:05)
[2020-12-29] MEDS: FAMOTIDINE (20 MG) 20 MG TABLET PO SCH (08:07)
[2020-12-29] MEDS: ATORVASTATIN 40 MG TABLET PO SCH (08:07)
[2020-12-29] MEDS: NIFEdipine XL (30MG) 30 MG TAB PO SCH (08:07)
[2020-12-29] MEDS: METOPROLOL TARTRATE 50 MG TABLET PO SCH ×2 (08:07→17:18)
[2020-12-29] MEDS: LISINOPRIL (20MG) 20 MG TABLET PO SCH (08:08)
[2020-12-29] MEDS: INSULIN REGULAR, HUMAN 100 UNIT/ML 3 ML VIAL SQ PRN ×4 (08:10→22:21)
[2020-12-29] MEDS: ENOXAPARIN SODIUM 40 MG/0.4 ML DISP.SYRIN SQ SCH ×2 (08:11→22:02)
[2020-12-29 12:00] VITALS: BP 148/74
[2020-12-29 16:00] VITALS: BP 120/76
--- NOTE | 2020-12-29 17:47 | NUR ---
B/S RESULTS 0730 153mg/dl-2 units insulin per protocol 1230-286 mg/dl 9 units insulin per protocol 1700-371 mg/dl 15 units insulin per protocol.
[2020-12-29] MEDS: ACETAMINOPHEN 325 MG TABLET PO PRN ×2 (18:26→23:57)
--- NOTE | 2020-12-29 18:54 | NUR ---
RN CLOSING NOTES Pt is A/O X 4, titrated down to 6 liters via NC satting at 94%, denies any respiratory distress, no SOB. Ambulatory with assistance, continent of B/B, VON PICC line patent and intact. No s/sx of hyperglycemia/hypoglycemia. Safety precautions implemented, bed locked in lowest position, call light within reach.
[2020-12-29 20:00] VITALS: BP 139/75
[2020-12-30] VITALS: BP 157/79
[2020-12-30 04:00] VITALS: BP 176/77
[2020-12-30] MEDS: hydrALAZINE HCL IV 20 MG VIAL IV PRN (04:01)
[2020-12-30] MEDS: hydrALAZINE HCL 25 MG TABLET PO SCH ×3 (06:42→17:04)
[2020-12-30] MEDS: BLOOD SUGAR DIAGNOSTIC 1 EACH STRIP VI SCH (07:46)
[2020-12-30] MEDS: INSULIN REGULAR, HUMAN 100 UNIT/ML 3 ML VIAL SQ PRN ×4 (07:48→21:18)
[2020-12-30 08:00] VITALS: BP 151/67
[2020-12-30] MEDS: METOPROLOL TARTRATE 50 MG TABLET PO SCH ×2 (09:00→17:06)
[2020-12-30] MEDS: ATORVASTATIN 40 MG TABLET PO SCH (09:39)
[2020-12-30] MEDS: FAMOTIDINE (20 MG) 20 MG TABLET PO SCH (09:40)
[2020-12-30] MEDS: DEXAMETHASONE SOD PHOSPHATE 10 MG/ML VIAL IV SCH (09:40)
[2020-12-30] MEDS: NIFEdipine XL (30MG) 30 MG TAB PO SCH (09:43)
[2020-12-30] MEDS: LISINOPRIL (20MG) 20 MG TABLET PO SCH (09:44)
[2020-12-30] MEDS: ENOXAPARIN SODIUM 40 MG/0.4 ML DISP.SYRIN SQ SCH ×2 (09:46→20:34)
[2020-12-30 12:00] VITALS: BP 172/76
[2020-12-30] MEDS ORDERED: *INSULIN REGULAR(HUMULIN R)HUM 100 UNIT/ML VIAL SQ PRN (12:30)
[2020-12-30] MEDS ORDERED: DEXTROSE 50%-WATER 50 ML DISP.SYRIN IV PRN (12:30)
[2020-12-30 16:00] VITALS: BP 152/73
[2020-12-30] MEDS: BLOOD SUGAR DIAGNOSTIC 1 EACH STRIP IN SCH ×2 (17:52→21:14)
--- NOTE | 2020-12-30 19:18 | NUR ---
RN NOTES, NO CHANGE IN CONDITION, PATIENT CONT ON 6LPM VIA NC, WITH O2 >94%, SOB ON EXERTION, ON BLOOD SUGAR AND HIGH BLOOD PRESSURE MANAGEMENT, WILL ENDORSE CONTINUITY OF CARE TO ONCOMING NURSE.
--- NOTE | 2020-12-30 19:30 | NUR ---
RN NOTE RECEIVED PATIENT UP ON WHEELCHAIR ALERT ORIENTED X4 VERBALLY RESPONSIVE ,HE IS ON 6L OXYGEN O2:99% HR 106,IV SITE IS RIGHT UPPER ARM PICC LINE INTACT PATENT AMBULATORY CONTIENT BOWEL/BLADDER CALL LIGHT WITHIN REACH,CONTINUE TO MONITOR.
[2020-12-30 20:00] VITALS: BP_SYST 151; BP_SYST 155; BP_DIAS 79; BP_DIAS 96
[2020-12-30] MEDS: ACETAMINOPHEN 325 MG TABLET PO PRN (21:21)
[2020-12-31] VITALS: BP 125/53
[2020-12-31] MEDS: hydrALAZINE HCL 25 MG TABLET PO SCH ×5 (00:08→23:48)
[2020-12-31] MEDS: GUAIFENESIN 300 MG/15 ML UDC PO PRN ×2 (01:52→23:49)
[2020-12-31 04:00] VITALS: BP 151/78
--- NOTE | 2020-12-31 06:15 | NUR ---
RN NOTE PATIENT REMAINS ON ALERT ORIENTED X4 VERBALLY RESPONSIVE NO SOB NOT ACUTE DISTRESS NOTED HE IS ON 6L OXYGEN O2:98% IV SITE IS RIGHT UPPER ARM PICC LINE INTACT PATENT ALL DUE MEDS GIVEN MD ORDERED ENDORSE NEXT COMING SHIFT FOR CONTINUATION OF CARE.
[2020-12-31] MEDS: BLOOD SUGAR DIAGNOSTIC 1 EACH STRIP IN SCH ×4 (07:15→21:21)
--- NOTE | 2020-12-31 07:25 | NUR ---
RN OPENING NOTES; RECEIVED PT IN BED IN SEMI FOWLERS POS. A/OX4, AMBULATORY WITH SKIN INTACT. VON PICCLINE NOTED, PATENTS WITH NO SIGNS OF INFILTRATION. PT ON O2 VIA NASAL CANULA @6LPM. NO DISTRESS NOTED, PT HAS NO C/O PAIN. PT BED IN LOCKED POSITION, WITH SIDE RAILS UP. WILL CONTINUE TO MONITOR.
[2020-12-31 08:00] VITALS: BP 151/78
[2020-12-31] MEDS: INSULIN REGULAR, HUMAN 100 UNIT/ML 3 ML VIAL SQ PRN ×3 (08:12→17:12)
[2020-12-31] MEDS: ENOXAPARIN SODIUM 40 MG/0.4 ML DISP.SYRIN SQ SCH ×2 (08:13→21:05)
[2020-12-31] MEDS: FAMOTIDINE (20 MG) 20 MG TABLET PO SCH (08:15)
[2020-12-31] MEDS: NIFEdipine XL (30MG) 30 MG TAB PO SCH (08:15)
[2020-12-31] MEDS: METOPROLOL TARTRATE 50 MG TABLET PO SCH ×2 (08:15→17:02)
[2020-12-31] MEDS: ATORVASTATIN 40 MG TABLET PO SCH (08:19)
[2020-12-31] MEDS: LISINOPRIL (20MG) 20 MG TABLET PO SCH (08:20)
[2020-12-31] MEDS: DEXAMETHASONE SOD PHOSPHATE 10 MG/ML VIAL IV SCH (08:20)
[2020-12-31] MEDS: ACETAMINOPHEN 325 MG TABLET PO PRN ×2 (09:08→21:06)
[2020-12-31 12:00] VITALS: BP 146/81
[2020-12-31 16:00] VITALS: BP 142/81
[2020-12-31] MEDS: METFORMIN 500 MG TABLET PO SCH (17:02)
--- NOTE | 2020-12-31 18:14 | NUR ---
RN CLOSING NOTES, PT UP IN SITTING POSITION TALKING TO A FRIEND. PT A/OX4. PT ON O2 VIA NC AT 6L. TITRATE 02 TO 4L VIA NC. TAKE 02 SAT WHILE AMBULATING TO RESTROOM. PT SKIN INTACT. VON PICCLINE, FLUSHED PATENT, WITH NO SIGNS OF INFECTION. PT KEPT CLEAN, DRY, COMFORTABLE. PT BED IN THE LOWEST POS. LOCKED WITH CALL LIGHT WITHIN REACH. ALL MEDS GIVEN AND TOLERATED WELL. ENDORSED TO INSURANCE POLICY CLERK RN IN STABLE CONDITION.
--- NOTE | 2020-12-31 19:30 | NUR ---
RN NOTE PT RECEIVED SITTING IN CHAIR. PT IS ON 4L OF 02 VIA NC SHOWING NO S/S OF RESP DISTRESS. BREATHING EVEN AND UNLABORED. PT ON TELE MONITOR SHOWING NSR. PT OXYGEN SATURATION >95%. SKIN INTACT. AMBULATORY. RIGHT UPPER ARM PICC LINE NOTED. LINE FLUSHED, PATENT, AND INTACT WITH NO SIGNS OF INFILTRATION. ALL SAFETY MEASURES IMPLEMENTED. CALL LIGHT WITHIN REACH. BED ALARM ON. BED LOCKED AND IN LOWEST POSITION. WILL CONTINUE TO MONITOR AND ASSESS FOR ANY CHANGES,
[2020-12-31 20:00] VITALS: BP_SYST 129; BP_SYST 147; BP_DIAS 60; BP_DIAS 75
[2020-12-31] MEDS: ZOLPIDEM TARTRATE 5 MG TABLET PO PRN (23:49)
[2021-01-01] VITALS: BP 147/75
[2021-01-01 04:00] VITALS: BP 152/84
[2021-01-01] MEDS: hydrALAZINE HCL 25 MG TABLET PO SCH ×3 (05:43→17:34)
--- NOTE | 2021-01-01 06:33 | NUR ---
RN NOTE NO CHANGES IN PT CONDITION DURING SHIFT. PT IS ON 4L OF 02 VIA NC SHOWING NO S/S OF RESP DISTRESS. BREATHING EVEN AND UNLABORED. PT OXYGEN SATURATION >95% WHILE IN BED AND >90% WHILE AMBULATING TO BATHROOM. RIGHT UPPER ARM PICC LINE NOTED. LINE FLUSHED, PATENT, AND INTACT WITH NO SIGNS OF INFILTRATION. ALL DUE MEDS GIVEN ORDERED. PT KEPT CLEAN AND COMFORTABLE. ALL SAFETY MEASURES IMPLEMENTED. CALL LIGHT WITHIN REACH. BED ALARM ON. BED LOCKED AND IN LOWEST POSITION. WILL ENDORSE TO MORNING SHIFT RN FOR SHAHNAZ.
--- NOTE | 2021-01-01 07:52 | NUR ---
radio television announcer note patient up on chair assisted br , keep clean dry , on4l nc of o2 saturation 94% at this time,with slight sob noted on sr hr 93 on telemonitor, rt upper arm picc line intact and flushed well , bed in lowest and locked position , will cont to monitor closely ,
[2021-01-01 08:00] VITALS: BP 128/76
[2021-01-01] MEDS: DEXAMETHASONE SOD PHOSPHATE 10 MG/ML VIAL IV SCH (08:10)
[2021-01-01] MEDS: LISINOPRIL (20MG) 20 MG TABLET PO SCH (08:11)
[2021-01-01] MEDS: FAMOTIDINE (20 MG) 20 MG TABLET PO SCH (08:11)
[2021-01-01] MEDS: ATORVASTATIN 40 MG TABLET PO SCH (08:11)
[2021-01-01] MEDS: METOPROLOL TARTRATE 50 MG TABLET PO SCH ×2 (08:12→16:13)
[2021-01-01] MEDS: METFORMIN 500 MG TABLET PO SCH ×2 (08:12→16:13)
[2021-01-01] MEDS: NIFEdipine XL (30MG) 30 MG TAB PO SCH (08:13)
[2021-01-01] MEDS: ENOXAPARIN SODIUM 40 MG/0.4 ML DISP.SYRIN SQ SCH ×2 (08:14→20:46)
[2021-01-01] MEDS: INSULIN REGULAR, HUMAN 100 UNIT/ML 3 ML VIAL SQ PRN ×3 (08:24→17:39)
[2021-01-01] MEDS: ACETAMINOPHEN 325 MG TABLET PO PRN (08:25)
[2021-01-01] MEDS: BLOOD SUGAR DIAGNOSTIC 1 EACH STRIP IN SCH ×3 (08:26→16:27)
--- NOTE | 2021-01-01 10:06 | NUR ---
teletype technician note seen by dr quevedo aware that patient ambulating saturation 94%
--- NOTE | 2021-01-01 11:16 | NUR ---
television program director note patient on ra at resting saturation 88% ,ambulation on ra saturation 85% on 2l nc resting 95%saturation, during ambulation o2 saturation 94%
[2021-01-01 12:00] VITALS: BP 161/74
--- NOTE | 2021-01-01 15:42 | NUR ---
CONFIGURATION SPECIALIST NOTE RESTING COMFORTABLY, SATURATION ON 2L 97% ,WILL MONITOR
[2021-01-01 16:00] VITALS: BP 143/78
[2021-01-01] MEDS ORDERED: DEXA2TAB PO (16:34)
[2021-01-01] MEDS ORDERED: DEXA4TAB PO (16:34)
[2021-01-01] MEDS ORDERED: ASPI-1169 PO (16:34)
[2021-01-01] MEDS ORDERED: DEXA6TAB PO (16:34)
--- NOTE | 2021-01-01 17:44 | NUR ---
AIRCRAFT ASSEMBLER NOTE PATIENT WILL BE DISCHARGE AWAITING FOR O2 TANKS TO BE DELIVERED
--- NOTE | 2021-01-01 18:18 | NUR ---
TELE NURSE CLOSING NOTE. PATIENT REMAIN STABLE THROUGH THE SHIFT. ABLE TO MAINTAIN 95% OXYGEN SATURATION WHILE AMBULATING. PATIENT IS WAITING TO BE DISCHARGE. WAITING FOR OXYGEN TANKS FROM HOME HEALTH. WILL CONTINUE TO MONITOR.
--- NOTE | 2021-01-01 19:16 | NUR ---
VETERINARY NURSE NOTE STILL AWAITING FOR O2 TANK ,RESOURCE CENTER TEACHER GAVE PHONE NUMBER COMPANY FOR HOME O2 TANK TYALOR RN NOTIFIED ,
--- NOTE | 2021-01-01 19:30 | NUR ---
STREET CLEANING EQUIPMENT OPERATOR OPENING NOTES: RECEIVED PT A/OX4 SITTING ON THE CHAIR RESTING COMFORTABLY. PATIENT IN NO S/SX OF ACUTE DISTRESS AT THIS TIME. NO SOB NOTED. PATIENT'S BREATHING IS EVEN AND UNLABORED. PATIENT IS ON 2L OF 02 VIA NC TOLERATING WELL WITH 02 SAT OF 99%. PATIENT ON TELE MONITORING READING SINUS RHYTHM HR IS @70s AT THE TIME OF RECEIVED. PATIENT ON CCHO DIET; TOLERATES WELL.NOTED IV SITE @ R UA PICC LINE ; PATENT, INTACT AND FLUSHING WELL; NO S/S OF INFECTION OR INFILTRATION. WITH COMMODE AT BEDSIDE. SAFETY MEASURES HAVE BEEN PROVIDED &IMPLEMENTED. PATIENT BED ALARM IS ON. HEAD OF BED ELEVATED. BED IS LOCKED, IN LOWEST POSITION AND SIDE RAILS UP. CALL LIGHT WITHIN REACH OF THE PATIENT. APPLICABLE ISOLATION PRECAUTIONS IN PLACE. WILL CONTINUE TO MONITOR AND REASSESS FOR ANY CHANGES AND WILL CARRY OUT ANY ONGOING AND ACTIVE MD ORDER. Addendum: 01/01/21 at 2155 by JONY LINDQUIST RN PLS DISREGARD NOTE
--- NOTE | 2021-01-01 19:49 | NUR ---
RN NOTES CALLED [facility] @[phone]; LEFT VM AND REQUESTED FOR CALLBACK REGARDING OF PT. LEFT PHONE NUMBER FOR CALLBACK. AWAITING RESPONSE. SUPERVISOR METAL FURNITURE ASSEMBLY MADE AWARE
[2021-01-01 20:00] VITALS: BP 141/68
--- NOTE | 2021-01-01 21:45 | NUR ---
RN NOTE PATIENT DISCHARGE TO HOME IN STABLE CONDITION AND VITAL SIGNS WNL, ALERT ORIENTED x4, NO ACUTE DISTRESS NOTED, BREATHING UNLABORED ON 4L OF 02 VIA NC; WENT HOME WITH PORTABLE O2. DISCHARGE INSTRUCTIONS GIVEN INCLUDING HEALTH TEACHINGS, ALSO PROVIDED DISCHARGE PACKET WHICH INCLUDES MED RECORDS AND PRESCRIPTION. ALL BELONGINGS ACCOUNTED FOR. IV ACCESS REMOVED, NO REDNESS, NO BLEEDING, NO SWELLING NOTED. PT WAS ROLLED OUT THE UNIT VIA WHEELCHAIR AND PICKED UP BY FRIEND IN STABLE CONDITION. SPECIALTY PLANT SUPERVISOR MADE AWARE.
== END 2021-01-01 22:29 | disposition home or self-care (01) | DRG 137 ==
LOC: ER 16:50 → ICU 19:50 → TELE1 12-28 18:17 → TELE-TD 12-28 19:00 → TELE1 12-30 07:47
PROVIDERS: ADMIT Family Medicine; ATTEND Nurse Practitioner Acute Care
PROC: 02HV33Z Insertion of Infusion Device into Superior Vena Cava, Percutaneous Approach (ICD-10-PCS; 2020-12-16)
PROC: B548ZZA Ultrasonography of Superior Vena Cava, Guidance (ICD-10-PCS; 2020-12-16)
PROC: XW033E5 Introduction of Remdesivir Anti-infective into Peripheral Vein, Percutaneous Approach, New Technology Group 5 (ICD-10-PCS; principal; 2020-12-17)
PROC: XW033H5 Introduction of Tocilizumab into Peripheral Vein, Percutaneous Approach, New Technology Group 5 (ICD-10-PCS; 2020-12-17)
DX: U07.1 COVID-19 (principal); J96.01 Acute respiratory failure with hypoxia; J12.82 Pneumonia due to coronavirus disease 2019; N17.0 Acute kidney failure with tubular necrosis; E44.0 Moderate protein-calorie malnutrition; E11.65 Type 2 diabetes mellitus with hyperglycemia; D72.829 Elevated white blood cell count, unspecified; E83.42 Hypomagnesemia; E87.2 Acidosis; E78.5 Hyperlipidemia, unspecified; E87.6 Hypokalemia; T38.0X5A Adverse effect of glucocorticoids and synthetic analogues, initial encounter; Z79.899 Other long term (current) drug therapy; E66.01 Morbid (severe) obesity due to excess calories; Z68.43 Body mass index [BMI] 50.0-59.9, adult; I70.0 Atherosclerosis of aorta; G47.33 Obstructive sleep apnea (adult) (pediatric); Z79.84 Long term (current) use of oral hypoglycemic drugs; I10 Essential (primary) hypertension; R00.1 Bradycardia, unspecified
CPT/HCPCS: 31720; 36415; 36569; 36600; 71045-TC; 80048-TC; 80061-TC; 80076-TC; 82550-TC; 82728-TC; 82785; 82803-TC; 82962-TC; 83605-TC; 83615-TC; 83735-TC; 83880; 84100-TC; 84484-TC; 85025-TC; 85378-TC; 85610-TC; 85730-TC; 86140-TC; 86480; 86803; 87040-TC; 87081-TC; 87806; 87899; 93307-TC; 93970-TC; 94003-TC; 94640-TC; 94760-TC; 94799-TC; A4216; A6403; G0378; J0360; J0692; J1100; J1200; J1650; J1815; J3262; J3370; J3475; J3480; J7030; J7050; J7060; U0003

== ENCOUNTER 2021-12-15 05:15 | Inpatient (IN) | payer OTHER ==
[~2021-12-15] VITALS: Ht 190.5 cm; Wt 172.4 kg
[~2021-12-15 05:15] MED LIST: ASPI-1169 PO; ATOR40TA PO; CHLO25TA2 PO; DEXA2TAB PO; DEXA4TAB PO; DEXA6TAB PO; GLIM4TAB37 PO; LOSA100T31 PO; METF-442 PO; METO100T14 PO; NIFE90TA61 PO; PIOG30TA10 PO
--- NOTE | 2021-12-15 05:24 | NUR ---
PT Bibself from home c/o sob x 2 weeks and worst the last 2 days 98% on room air. Pt A/Ox4. Pt Ambulatory with steady gait. Connected pt to POX and monitor. Safety Measures in place.
--- NOTE | 2021-12-15 05:41 | NUR ---
MECHANIC'S ASSISTANT AT PT'S BEDSIDE
--- NOTE | 2021-12-15 06:33 | NUR ---
RAC #[id number] S/L. SENIOR LEAD DEVELOPER AT PT'S BEDSIDE. COVID ANTIGEN SWAB COLLECTED AND SENT TO LAB
[2021-12-15 06:51] LABS: BASOPHILS # (AUTO) 0.1 K/uL (0.0-0.2); BASOPHILS % (AUTO) 0.5 % (0.0-2.0); EOSINOPHILS % (AUTO) 1.3 % (0.0-6.0); HEMATOCRIT 34 % (39-51); HEMOGLOBIN 11.4 g/dL (13.5-17.5); LYMPHOCYTES % (AUTO) 25.5 % (20.0-44.0); MEAN CORPUSCULAR HGB CONC 34 g/dl (31.0-36.0); MEAN CORPUSCULAR VOLUME 83 fL (80-96); MONOCYTES # (AUTO) 0.8 K/uL (0.1-1.30); MONOCYTES % (AUTO) 6.3 % (2.0-12.0); NEUTROPHILS # (AUTO) 7.9 K/uL (1.8-8.9); NEUTROPHILS % (AUTO) 66.4 % (43.0-81.0); PLATELET COUNT (AUTO) 330 K/uL (150-450); RED BLOOD CELL COUNT(AUTO) 4.07 MIL/uL (4.5-6.0); WHITE BLOOD COUNT (AUTO) 11.9 K/uL (4.3-11.0)
[2021-12-15 07:07] LABS: CARBON DIOXIDE 29 mmol/L (21-32); CHLORIDE 102 mmol/L (98-107); CREATININE 1.5 mg/dL (0.6-1.3); GLUCOSE 119 mg/dL (74-106); POTASSIUM 3.1 mmol/L (3.5-5.1); SODIUM SERUM 139 mmol/L (136-145); UREA NITROGEN, BLOOD 28 mg/dL (7-18)
[2021-12-15 07:20] LABS: ALANINE AMINOTRANSFERASE 34 U/L (12-78); ALBUMIN 3.6 g/dL (3.4-5.0); ALKALINE PHOSPHATASE 80 U/L (46-116); ASPARTATE AMINOTRANSFERASE 21 U/L (15-37); BILIRUBIN,DIRECT 0.1 mg/dL (0.0-0.2); BILIRUBIN,TOTAL 0.4 mg/dL (0.2-1.0); TOTAL PROTEIN, SERUM 7.5 g/dL (6.4-8.2)
[2021-12-15] MEDS ORDERED: IV NS 0.9% 1,000 ML BAG IV ONE (08:00)
--- NOTE | 2021-12-15 08:06 | NUR ---
IV D/C ON RIGHT AC, NEW IV ADMIN ON LEFT AC INTACT PATENT FLOWING NS AT THIS TIME.
--- NOTE | 2021-12-15 08:15 | NUR ---
NURSING SUP CALLED FOR TELE BED.
[2021-12-15] MEDS ORDERED: POTASSIUM CHLORIDE 20 MEQ TAB.PRT.SR PO ONE ×2 (08:30→08:34)
[2021-12-15] MEDS ORDERED: POTASSIUM CHLORIDE 10 MEQ TABLET.SA ONE (08:35)
[2021-12-15] MEDS ORDERED: MAGN250T10 PO (08:44)
[2021-12-15] MEDS ORDERED: ASCO-340 PO (08:44)
[2021-12-15] MEDS ORDERED: LABE100T5 PO (08:44)
[2021-12-15] MEDS ORDERED: CHOL100043 PO (08:44)
[2021-12-15] MEDS ORDERED: SEMA0.25 SQ (08:44)
[2021-12-15] MEDS ORDERED: ZINC50TA39 PO (08:44)
[2021-12-15] MEDS ORDERED: ASPIRIN 81 MG TAB.CHEW ONE ×3 (09:27→09:47)
[2021-12-15] MEDS ORDERED: ASPIRIN 81 MG TAB.CHEW PO SCH (09:30)
--- NOTE | 2021-12-15 10:51 | NUR ---
REPORT GIVEN TO GABRIEL FOR SHAHNAZ
--- NOTE | 2021-12-15 11:00 | NUR ---
ADMISSION NOTE Received patient from ER via [facility]. Received report from Tobi/Vicente. Patient is A/O x 4, able to make needs known. On room air, breathing evenly and unlabored. No SOB or s/s of distress noted. IV access on LAC #20 intact and patent. Patient oriented to room and how to use the call light. All belongings accounted for. VS taken as follows: BP 140/69; HR 76; RR 19; Temp 98.0; SPO2 99%. Patient denies any chest pain at this time. Complains of minimal sob, SPO2 is 99% on room air. External monitor attached, showing SR, HR 71. Skin assessment done, skin is c/d/i. Safety precautions in place: bed in low, locked position; siderails up x 2; call light within reach. Will continue to monitor.
[2021-12-15 12:45] VITALS: BP 140/69
[2021-12-15] MEDS: ENOXAPARIN SODIUM 40 MG/0.4 ML DISP.SYRIN SQ SCH (12:58)
[2021-12-15] MEDS ORDERED: Z GUARD REMEDY 4 OZ OINT TP PRN (13:00)
[2021-12-15] MEDS ORDERED: ACETAMINOPHEN 325 MG TABLET PO PRN (13:00)
[2021-12-15] MEDS ORDERED: ONDANSETRON HCL/PF 4 MG/2 ML VIAL IVP PRN (13:00)
[2021-12-15] MEDS ORDERED: DEXTROSE 50%-WATER 50 ML DISP.SYRIN IV PRN (13:00)
[2021-12-15] MEDS ORDERED: *INSULIN REGULAR(HUMULIN R)HUM 100 UNIT/ML VIAL SQ PRN (13:00)
[2021-12-15 16:07] VITALS: BP 143/78
[2021-12-15] MEDS ORDERED: FUROSEMIDE 40 MG/4 ML VIAL IV ONE (16:30)
[2021-12-15] MEDS: METFORMIN 500 MG TABLET PO SCH (16:54)
[2021-12-15] MEDS: LABETALOL HCL (100MG) 100 MG TABLET PO SCH (16:54)
[2021-12-15] MEDS: GLIMEPIRIDE 4 MG TABLET PO SCH (16:54)
[2021-12-15] MEDS: BLOOD SUGAR DIAGNOSTIC 1 EACH STRIP IN SCH ×2 (17:37→21:26)
[2021-12-15] MEDS: INSULIN REGULAR, HUMAN 100 UNIT/ML 3 ML VIAL SQ PRN (17:39)
[2021-12-15 18:25] LABS: BILIRUBIN,URINE NEGATIVE (NEGATIVE); COLOR,URINE YELLOW (YELLOW); LEUKOCYTE ESTERASE ,URINE NEGATIVE (NEGATIVE); NITRITE, URINE NEGATIVE (NEGATIVE); PROTEIN,URINE NEGATIVE (NEGATIVE); UGLUCOSE NEGATIVE (NEGATIVE); UROBILINOGEN,URINE 0.2 EU/dL (0.2)
[2021-12-15 18:41] LABS: CREATININE, URINE 156.5 MG/DL (30.0-125.0)
--- NOTE | 2021-12-15 19:47 | NUR ---
RN RADIATION ONCOLOGY CLOSING NOTE Patient in bed, resting comfortably. A/O c 4, able to make needs known. Stable on room air, breathing evenly and unlabored. No SOB or s/s of distress noted. IV access on LAC #20 intact and patent. Urine sample collected and sent to lab. All needs attended to. Due meds given. Patient denies any pain or discomfort at this time. Safety precautions maintained: bed in low, locked position; siderails up x 2; call light within reach. Will endorse to night warehouse manager nurse for SHAHNAZ.
[2021-12-15 20:00] VITALS: BP 139/70
--- NOTE | 2021-12-15 20:16 | NUR ---
TRUCK DRIVER TEAMSTER NOTE Patient in bed, resting comfortably. A/O X4, able to make needs known. Stable on room air, breathing evenly and unlabored. No SOB or s/s of distress noted. IV access on LAC #20 intact and patent. All needs attended to. Patient denies any pain or discomfort at this time. Safety precautions maintained: bed in low, locked position; siderails up x 2; call light within reach.
[2021-12-16] VITALS: BP 137/78
[2021-12-16 04:00] VITALS: BP 152/92
[2021-12-16] MEDS: BLOOD SUGAR DIAGNOSTIC 1 EACH STRIP IN SCH ×3 (06:35→17:58)
[2021-12-16] MEDS: INSULIN REGULAR, HUMAN 100 UNIT/ML 3 ML VIAL SQ PRN ×2 (06:35→12:30)
--- NOTE | 2021-12-16 06:37 | NUR ---
RN CLINICIAN NOTE Patient in bed, resting comfortably. A/O X4, able to make needs known. Stable on room air, breathing evenly and unlabored. pt was placed on 2l of oxygen for comfort during sleep. No SOB or s/s of distress noted. IV access on LAC #20 intact and patent. All needs attended to. Patient denies any pain or discomfort at this time. Safety precautions maintained: bed in low, locked position; siderails up x 2; call light within reach.
--- NOTE | 2021-12-16 07:30 | NUR ---
RN Opening Note Received report from RN, pt sleeping with no signs of distress, easily aroused. Will continue to monitor throughout shift. Pts IV Intact with no signs of infiltration. All safety precautions taken, bed at lowest position, call light and table within reach.
[2021-12-16 07:32] LABS: BASOPHILS % (AUTO) 0.3 % (0.0-2.0); EOSINOPHILS % (AUTO) 1.3 % (0.0-6.0); HEMATOCRIT 34 % (39-51); HEMOGLOBIN 11.3 g/dL (13.5-17.5); LYMPHOCYTES # (AUTO) 2.9 K/uL (0.8-4.8); LYMPHOCYTES % (AUTO) 24.5 % (20.0-44.0); MEAN CORPUSCULAR HGB CONC 34 g/dl (31.0-36.0); MEAN CORPUSCULAR VOLUME 84 fL (80-96); MONOCYTES # (AUTO) 0.7 K/uL (0.1-1.30); MONOCYTES % (AUTO) 5.6 % (2.0-12.0); NEUTROPHILS % (AUTO) 68.3 % (43.0-81.0); PLATELET COUNT (AUTO) 311 K/uL (150-450); RED BLOOD CELL COUNT(AUTO) 4.04 MIL/uL (4.5-6.0); WHITE BLOOD COUNT (AUTO) 11.7 K/uL (4.3-11.0)
[2021-12-16 07:51] LABS: ALBUMIN 3.5 g/dL (3.4-5.0); BILIRUBIN,TOTAL 0.4 mg/dL (0.2-1.0); CALCIUM, SERUM 9.3 mg/dL (8.5-10.1); CREATININE 1.1 mg/dL (0.6-1.3); MAGNESIUM 2.1 mg/dL (1.8-2.4); PHOSPHORUS 4.6 mg/dL (2.5-4.9); POTASSIUM 2.9 mmol/L (3.5-5.1); TOTAL PROTEIN, SERUM 7.3 g/dL (6.4-8.2)
[2021-12-16 08:00] VITALS: BP 136/72
[2021-12-16 08:05] LABS: THYROID STIMULATING HORMONE 3.415 uIU/mL (0.358-3.74)
[2021-12-16] MEDS: GLIMEPIRIDE 4 MG TABLET PO SCH ×2 (08:18→17:18)
[2021-12-16] MEDS: METFORMIN 500 MG TABLET PO SCH ×2 (08:19→17:18)
[2021-12-16] MEDS: ENOXAPARIN SODIUM 40 MG/0.4 ML DISP.SYRIN SQ SCH (08:25)
[2021-12-16] MEDS: LABETALOL HCL (100MG) 100 MG TABLET PO SCH ×2 (08:27→17:19)
[2021-12-16] MEDS: POTASSIUM CHLORIDE 20 MEQ TAB.PRT.SR PO SCH ×5 (08:44→13:36)
[2021-12-16] MEDS ORDERED: ATORVASTATIN 40 MG TABLET PO SCH (09:00)
[2021-12-16] MEDS ORDERED: LOSARTAN POTASSIUM 50 MG TABLET PO SCH (09:00)
[2021-12-16] MEDS ORDERED: VALSARTAN 80 MG TABLET PO SCH (09:00)
[2021-12-16] MEDS ORDERED: CARVEDILOL 12.5 MG TABLET PO SCH (09:00)
[2021-12-16] MEDS ORDERED: ASCORBIC ACID 500 MG TABLET PO SCH (09:00)
[2021-12-16] MEDS ORDERED: PIOGLITAZONE HCL 15 MG TABLET PO SCH (09:00)
[2021-12-16] MEDS ORDERED: NIFEdipine XL (30MG) 30 MG TAB PO SCH (09:00)
[2021-12-16] MEDS ORDERED: CHOLECALCIFEROL 1,000 UNIT TABLET (VIT D3) PO SCH (09:00)
[2021-12-16 09:53] LABS: THYROID STIMULATING HORMONE 3.316 uIU/mL (0.358-3.74)
--- NOTE | 2021-12-16 11:31 | NUR ---
MidShift PT AOx4, states no discomfort. Patient asked to walk hallway, accompanied pt and provided assistance, he was able to walk all around hallway x1 with no assistance. Patient asked for supplies to perform his own adls's. Provided medications as scheduled. VSS, on Room air, able to express concerns and express needs.. All safety precautions taken, no incidents.
[2021-12-16 11:33] VITALS: BP 134/69
[2021-12-16 12:32] LABS: ABG BASE EXCESS 1.3 mmol/L; ABG OXYGEN SATURATION 96.9 % (92.0-98.5); ABG PCO2 34.4 mmHg (35.0-45.0); ABG PH 7.471 (7.350-7.450); ABG PO2 92.5 mmHg (75.0-100.0); COHb 0.5 % (0.5-1.5); MetHb 0.1 % (0.0-1.5); O2Hb 96.3 % (94.0-97.0); SITE, ABG Right Radial; VENT MODE, BG ROOM AIR
[2021-12-16 16:29] VITALS: BP 144/75
[2021-12-16 17:19] VITALS: BP 144/75
[2021-12-16] MEDS ORDERED: CARV12.52 PO (17:38)
--- NOTE | 2021-12-16 18:15 | NUR ---
employment attorney Note Pt AOx4, agrees with discharge home. States he will follow up with his PCP tomorrow 12/17/21. All belongings returned to pt. Educated patient on importance of monitoring sugars at home and monitoring self for symptoms of hypokalemia, hyperglycemia and hypoglycemia, pt verbalizes understanding. All safety precautions taken with patient, no incidents throughout shift. Patient was walked to main entrance, per physician patient is able to go home with no branch logistics supervisor. Name band and IV removed, IV removed intact.
[2021-12-18] MEDS ORDERED: Medication Not On Formulary EA (Semaglutide (Ozempic) 0.25 MG) SQ SCH (12:30)
== END 2021-12-16 20:00 | disposition home or self-care (01) | DRG 198 ==
LOC: ER 05:19 → TELE 09:07
PROVIDERS: ADMIT Nurse Practitioner Acute Care; ATTEND Nurse Practitioner Acute Care
DX: I25.10 Atherosclerotic heart disease of native coronary artery without angina pectoris (principal); N17.0 Acute kidney failure with tubular necrosis; I50.33 Acute on chronic diastolic (congestive) heart failure; J06.9 Acute upper respiratory infection, unspecified; E11.22 Type 2 diabetes mellitus with diabetic chronic kidney disease; Z20.822 Contact with and (suspected) exposure to COVID-19; E66.2 Morbid (severe) obesity with alveolar hypoventilation; Z68.42 Body mass index [BMI] 45.0-49.9, adult; N18.9 Chronic kidney disease, unspecified; I13.0 Hypertensive heart and chronic kidney disease with heart failure and stage 1 through stage 4 chronic kidney disease, or unspecified chronic kidney disease; E78.5 Hyperlipidemia, unspecified; Z86.16 Personal history of COVID-19; Z79.84 Long term (current) use of oral hypoglycemic drugs; E87.6 Hypokalemia; Z98.890 Other specified postprocedural states; Z79.899 Other long term (current) drug therapy; Z87.891 Personal history of nicotine dependence
CPT/HCPCS: 36415; 36600; 71045-TC; 76770-TC; 80048-TC; 80053-TC; 80061-TC; 80076-TC; 82570-TC; 82962-TC; 83735-TC; 83880; 84100-TC; 84300-TC; 84439-TC; 84443-TC; 84484-TC; 85025-TC; 85378-TC; 87081-TC; 93307-TC; C9803; G0378; J1650; J1815; J1940; J7030